=== PATIENT | female | born 1970 | race Caucasian/White ===

== ENCOUNTER 2024-03-01 10:36 | Outpatient (REF) | payer MEDICAID, OTHER, SELFPAY ==
[2024-03-01 13:15] LABS: MANUAL DIFF FLAG NO
[2024-03-01 13:17] LABS: Appearance Urine Clear; Color Urine Yellow; Glucose Urine UA Negative (Negative); Leukocyte Esterase Urine Negative (Negative); Nitrite Urine Negative (Negative); PH 5.5 (5.0-9.0); Specific Gravity - Urine 1.015 (1.005-1.025); Urine Blood Negative (Negative); Urine Ketones Negative (Negative); Urine Protein Negative (Neg-Trace)
[2024-03-01 13:19] LABS: Basophils Absolute Auto 0.1 X10*3/uL (0.0-0.2); Basophils Percent Auto 0.5 % (0-2); Eosinophils Absolute Auto 0.2 X10*3/uL (0.0-0.4); Eosinophils Percent Auto 1.9 % (0-4); Hematocrit 43.7 % (37.0-47.0); Imm Gran Abs Auto 0.03 X10*3/uL (0.00-0.03); Imm Gran Pct Auto 0.3 % (0.0-0.4); Lymphocytes Absolute Auto 2.8 X10*3/uL (1.2-4.9); Lymphocytes Percent Auto 26.6 % (20-40); Mean Corpuscular Hemoglobin 27.3 pg (27.0-33.0); Mean Corpuscular Volume 85.2 fL (80.0-98.0); Mean Platelet Volume 12.5 fL (9.4-12.3); Monocytes Absolute Auto 0.7 X10*3/uL (0.1-1.2); Monocytes Percent Auto 6.4 % (2-11); Neutrophils Absolute Auto 6.8 x10*3/uL (2.0-8.3); Neutrophils Percent Auto 64.3 % (45-73); Platelet Count 256 X10*3/uL (160-400); Red Blood Count 5.13 X10*6/uL (4.20-5.50); Red Cell Distribution Width 13.6 % (11.0-16.0); White Blood Count 10.6 X10*3/uL (4.8-10.8)
[2024-03-01 13:36] LABS: Bacteria Urine Trace (None Seen); Hyaline Casts Urine 0-2 /LPF (0-2); RBC Urine 0-2 /HPF (0-2); Squamous Epithelial Cell Urine 0-2 /HPF (0-2); WBC Urine 0-5 /HPF (0-5)
[2024-03-01 13:49] LABS: Alanine Aminotransferase 35 U/L (0-31); Albumin Level 4.4 g/dL (3.5-5.0); Alkaline Phosphatase 72 U/L (39-117); Anion Gap 16 (12-20); Aspartate Amino Transferase 24 U/L (5-31); Bilirubin Total 0.4 mg/dL (0.0-1.0); Blood Urea Nitrogen 14 mg/dL (9-16); Calcium 9.6 mg/dL (8.4-10.2); Carbon Dioxide 26 mmol/L (22-29); Chloride 103 mmol/L (96-108); Cholesterol 194 mg/dL (<200); Estimated Glomerular Filt Rate > 60; Glucose Random 87 mg/dL (60-115); HDL Cholesterol 41 mg/dL (>40); LDL Cholesterol Calculated 136 mg/dL (<100); Potassium 4.2 mmol/L (3.3-5.1); Sodium 141 mmol/L (135-145); Total Protein 7.9 g/dL (6.5-8.0); Triglycerides 85 mg/dL (<150)
[2024-03-01 13:51] LABS: HIV AB/AG Nonreactive (Nonreactive); HIV Num 1 0.04 S/CO (0.00-0.99); ~HepC Num1 0.12 S/CO (0.00-0.79); ~Hepatitis C Antibody Nonreactive (Nonreactive)
[2024-03-01 13:52] LABS: Syphilis Screen Nonreactive (Nonreactive)
[2024-03-01 14:00] LABS: Creatinine Urine 67.34 mg/dL; Microalbum/Creatinine Ratio Ur 14.8 ug/mg cr (<30)
[2024-03-01 14:06] LABS: Folate 12.8 ng/mL (> or = 4.0); Vitamin B12 678 pg/mL (200-900)
[2024-03-01 15:05] LABS: TSH reflex Free T4 1.25 uIU/mL (0.32-4.0)
[2024-03-03 23:18] LABS: TS Negative Control Passed; TS Panel A 0; TS Panel B 3; TS Positive Control Passed; TSpotTB Negative (Negative)
== END 2024-03-01 10:37 | disposition home or self-care (01) ==
LOC: HO.CHCLDS 10:36
PROVIDERS: Visit Provider Family Medicine
DX: E11.9 Type 2 diabetes mellitus without complications (principal); Z13.9 Encounter for screening, unspecified
CPT/HCPCS: 36415; 80053; 80061; 81001; 82043; 82570; 82607; 82746; 84443; 85025; 86481; 86780; 86803; 87389

== ENCOUNTER 2024-03-30 14:09 | Outpatient (REF) | payer MEDICAID, SELFPAY | END 2024-03-30 14:10 | disposition home or self-care (01) | LOC: HO.CHCLNP 14:09 | PROVIDERS: Visit Provider Family Medicine | DX: Z12.4 Encounter for screening for malignant neoplasm of cervix (principal) | CPT/HCPCS: 36415; 88175 ==

== ENCOUNTER 2024-04-12 14:33 | Outpatient (REF) | payer MEDICAID, SELFPAY ==
[2024-04-13 08:35] LABS: HBS Num1 0.11 mIU/mL (0-7.99); HBc Num1 0.17 S/CO (0.00-0.79); Hepatitis B Core Antibody Nonreactive (Nonreactive); ~Hepatitis B Surface Antibody NONREACTIVE (Nonreactive)
== END 2024-04-12 14:34 | disposition home or self-care (01) ==
LOC: HO.CHCLDS 14:33
PROVIDERS: Visit Provider Family Medicine
DX: E11.620 Type 2 diabetes mellitus with diabetic dermatitis (principal)
CPT/HCPCS: 36415; 86704; 86706

== ENCOUNTER 2024-12-06 15:03 | Outpatient (REF) | payer MEDICAID, SELFPAY ==
--- NOTE | ~2024-12-06 | US_ITS ---
CLINICAL HISTORY: ASYMMETRIC SKIN, MASS LEFT AXILLA US of the left axilla Comparison: None Findings: No sonographically detectable abnormality in the area of clinical interest. Impression: 1. Negative ultrasound examination. This document has been electronically signed by: Sophie Self MD on 12/07/2024 14:40:38
--- OUTSIDE RECORDS SUMMARY | 2024-12-06 16:59 | XMS_ITS | Encounter Summary ---
Author Organization [employer] Address [address] [facility] [address] [place] [address] Care Team Providers Care Heater Engineer Helper Name Role Phone Sendy Vincent MD Primary Care Provider [phone] Reason for Visit * Reason Onset Date Comments Medication Question 03/03/2024 Encounter Details Date Type Department Care Team ([facility] st Contact Info) Description 03/03/2024 Telephone [facility] MEDICINE [address] [place] [address] Sendy Vincent MD [address] [place], [place] [phone] Medication Question Social History Tobacco Use Types Packs/Day Years Used Date Smoking Tobacco: Never Passive Smoke Exposure: Never Smokeless Tobacco: Never Alcohol Use Standard Drinks/Week Comments Not Currently 0 (1 standard drink = 0.6 oz pur e alcohol) Housing Stability Answer Date Recorded What is your housing situation today? I have ludmilasalvador rose 02/17/[address] you li ve. Do you have problems with any of the following? None of the above 02/17/2024 Food Insecurity Answer Date Recorded Within the past 12 months, y ou worried that your food would run out before you got money to buy more: Never True 02/17/2024 Within the past 12 months,th e food you bought just didn't last and you didn't have enough money to get more: Never True 07/2024 Transportation Answer Date Recorded In the past 12 months, has l ack of transportation kept you from medical appts, meetings, work or from getting things needed for daily living? No 02/17/2024 Utilities Answer Date Recorded In the past 12 months, has t he electric, gas, oil or water company threatened to shut off services in your home? No 02/17/2024 Comments Unknown Sex and Gender Information Value Date Recorded Sex Assigned at Female 10/16/2023 10:33 AM EST Legal Sex Female 10:31 AM EST Gender Identity Female 10/16/2023 10:33 AM EST Sexual Orientation Straight 03/01/2024 9: 35 AM EDT documented as of this encounter Plan of Treatment Not on file documented as of this encounter Visit Diagnoses Not on filedocumented in this encounter Care Teams Heater Engineer Helper Relationship Specialty Start Date End Date Sendy Vincent MD [address] [place] [phone] PCP - General Family Medicine 03/01/24 documented as of this encounter
--- OUTSIDE RECORDS SUMMARY | 2024-12-06 16:59 | XMS_ITS | Encounter Summary ---
Author Organization [employer] Address [address] [facility] 7t [place] [address] Care Team Providers Care Call Circuit Worker Name Role Phone Sendy Vincent MD Primary Care Provider Reason for Visit * Reason Comments Med Refill Encounter Details Date Type Department Care Team ([facility] st Contact Info) Description 07/15/2024 Refill [facility] MED & PEDS [address] [place] [address] Sendy Vincent MD [address] [place] [address] Type 2 diabetes mellitus without complication, without long-term current use of insulin ([facility]) Social History Tobacco Use Types Packs/Day Years Used Date Smoking Tobacco: Never Passive Smoke Exposure: Never Smokeless Tobacco: Never Alcohol Use Standard Drinks/Week Comments Not Currently 0 (1 standard drink = 0.6 oz pur e alcohol) Depression Answer Date Recorded Patient Health Questionnaire-9 Score 0 04/12/2024 Patient Health Questionnaire-9 Score 0 04/12/2024 Last PHQ-9: Questionnaire Data Not on file 0 04/12/2024 Housing Stability Answer Date Recorded What is your housing situation today? I have ludmila rose 02/17/[address] you [...] off services in your home? No 02/17/2024 Depression Answer Date Recorded Patient Health Questionnaire-2 Score 0 04/12/2024 Comments Unknown Sex and Gender Information Value Date Recorded Sex Assigned at Female 10/16/2023 10:33 AM EST Legal Sex Female 10:31 AM EST Gender Identity Female 10/16/2023 10:33 AM EST Sexual Orientation Straight 03/01/2024 9: 35 AM EDT documented as of this encounter Plan of Treatment Not on file documented as of this encounter Visit Diagnoses Diagnosis Type 2 diabetes mellitus without complication, without long-term current use of insulin ([facility]) documented in this encounter Additional Health Concerns Assessment Noted Time PHQ-9 Depression Total Score: 0 04/12/20 1:49 PM EDT documented as of this encounter Care Teams Call Circuit Worker Relationship Specialty Start Date End Date Sendy Vincent MD [address] [place] [phone] PCP - General Family Medicine 03/01/24 documented as of this encounter
--- OUTSIDE RECORDS SUMMARY | 2024-12-06 16:59 | XMS_ITS | Clinical Summary ---
Author Organization [employer] Address [address] [place] [address] 7[address] [place] [address] Care Team Providers Care Geological Sample Tester Name Role Phone Sendy Vincent MD Primary Care Provider [phone] Allergies No known active allergies Medications Blood Pressure kit 1 Units Once per day. 1 kit 03/01/20 24 Active FREESTYLE LITE test stripIndication s:Type 2 diabetes mellitus without complication, without long-term current use of insulin ([facility]) Use to test blood sugar BID 100 each 12 03/01/20 24 025 Active Lancets miscIndications :Type 2 diabetes mellitus without complication, without long-term current use of insulin ([facility]) Use to test blood sugar BID 100 each 03/01/20 24 Active Alcohol Swabs 70 % padsIndications :Type 2 diabetes mellitus without complication, without long-term current use of insulin ([facility]) Use to test blood sugar BID 100 each 03/01/20 24 Active Blood Glucose Monitoring Suppl (FreeStyle [place] Lite) w/Device kitIndications: Type 2 diabetes mellitus without complication, without long-term current use of insulin ([facility]) Use to test blood sugar BID 1 kit 1 03/01/20 24 Active loratadine (Claritin) 10 MG tablet Take 10 mg by mouth Once per day. 03/08/20 24 Active EPINEPHrine (Epipen) 0.3 MG/0.3ML injection syringe INJECT INTRAMUSCULARLY FOR ALLERGIC REACTIONS, CALL 911 SEEK MEDICAL ATTENTION 03/08/20 24 Active ammonium lactate (Amlactin) 12 % cream Apply topically if needed for dry skin. 385 g 11 04/12/20 24 025 Active amLODIPine-Vals agustin-HCTZ 5-160-12.5 MG tabletIndicatio ns:Hypertension , unspecified type TAKE ONE TABLET DAILY 90 tablet 1 08/25/20 24 Active SITagliptin (Januvia) 50 MG tabletIndicatio ns:Type 2 diabetes mellitus without complication, without long-term current use of insulin (CMS/HCC) TAKE ONE TABLET DAILY 90 tablet 1 08/27/20 24 Active metFORMIN (Glucophage) 500 MG tabletIndicatio ns:Type 2 diabetes mellitus without complication, without long-term current use of insulin (CMS/HCC) TAKE 1 TABLET TWICE DAILY WITH BREAKFAST AND SUPPER 180 tablet 1 09/03/20 24 Active famotidine (Pepcid) 20 MG tabletIndicatio ns:Mild acid reflux Take 1 tablet (20 mg) by mouth if needed in the morning and at bedtime for heartburn or indigestion. 100 tablet 1 09/24/19 25 026 Active acetaminophen (Tylenol) 325 MG capsuleIndicati ons:Routine health maintenance Take 1-2 capsules (325-650 mg) by mouth every 6 (six) hours if needed (pain or fever). 120 capsule 1 09/24/19 25 Active ibuprofen 600 MG tabletIndicatio ns:Routine health maintenance Take 1 tablet (600 mg) by mouth every 8 (eight) hours if needed (pain or fever). 100 tablet 2 09/24/19 25 026 Active tolterodine LA (Detrol LA) 4 MG 24 hr capsule TAKE ONE CAPSULE BY MOUTH ONCE DAILY, DO NOT BREAK, CRUSH, DISSOLVE OR CHEW 90 capsule 1 10/26/19 25 Active acetaminophen (Tylenol) 325 MG tablet TAKE 1 OR 2 TABLETS BY MOUTH EVERY 6 HOURS NEEDED FOR PAIN OR FEVER 120 tablet 1 11/13/19 25 Active Active Problems Problem Noted Date Diagnosed Date Mild acid reflux 09/27/2024 Assessment & Plan (09/27/2024 6:34 PM EST): Reviewed lifestyle interventions to decrease symptoms including avoid triggering foods (such as coffee, chocolate, fatty foods), eating 2-3 hours before lying down, and weight loss. Plan to start famotidine 20 mg twice daily as needed. Reviewed med safety and side effects May consider increase to PPI if needed Primary hypertension 09/27/2024 Assessment & Plan (09/27/2024 6:37 PM EST): Elevated in office, although well-controlled per home blood pressure readings Continues with abmzhsntoz-duorqelap-hvgarkalaroauddspdy 5-1 60-12.5 mg daily Encouraged lifestyle interventions and follow-up precautions reviewed Type 2 diabetes mellitus wit hout complication, without long-term current use of insulin 07/20/2024 Chronic pain of left knee 04/12/2024 Assessment & Plan (04/12/2024 2:25 PM EDT): Possible Arthritis of the left knee, ordering XR of the knee for further evaluation. Referral to Physical Therapy for additional treatment. Class 1 obesity with serious comorbidity and body mass index (BMI) of 32.0 to 32.9 in adult 03/31/2024 Assessment & Plan (03/31/2024 9:45 AM EDT): Discussed calorie deficit, recommended reduction of 20-30% of maintenance calories; batchmaker referral offered. Recommended to decrease soda and sugary beverage consumption. Recommended at least 20 g per meal of protein to assist with satiety. Recommended at least 150 min/week of moderate intensity exercise. Encounters Date Type Department Care Team Description 11/12/2024 Refill [facility] MED & PEDS [address] [place] [address] Sendy Vincent MD 10/26/2024 Refill [facility] MED & PEDS [address] [place] [address] Sendy Vincent MD 09/24/2024 3:15 PM EST Office Visit [facility] MED & PEDS [address] [place] [address] Katrin Williamson, ELIZABETH Mass of left axilla (Primary Dx); Mild acid reflux; Routine health maintenance; Primary hypertension 09/24/2024 Travel 09/24/2024 Telephone [facility] MED & PEDS [address] [place] [address] Sendy Vincent MD Nurse Triage from Last 3 Months Immunizations Name Administration Dates Next Due Pneumococcal Conjugate PCV 20 03/30/2024 Tdap 04/12/2024 Zoster, Recombinant 06/28/2024,04/12/2024 Family History Medical History Relation Name Comments Heart disease Father Hypertension Father Diabetes Mother Hypertension Mother Relation Name Status Comments Father Mother Social History Tobacco Use Types Packs/Day Years Used Date Smoking Tobacco: Never Passive Smoke Exposure: Never Smokeless Tobacco: Never Tobacco Cessation:Counseling Given: Not Answered Alcohol Use Standard Drinks/Week Comments Not Currently [...] Orientation Straight 03/01/2024 9: 35 AM EDT Last Filed Vital Signs Vital Sign Reading Time Taken Comments Blood Pressure 162/92 09/24/2024 3:21 PM EST Pulse 86 09/24/2024 3:18 PM EST Temperature 36.4 ??C (97.6 ??F) 09/24/2024 3:18 PM ES T Respiratory Rate 18 09/24/2024 3:18 PM EST Oxygen Saturation 97% 09/24/2024 3:18 PM EST Inhaled Oxygen Concentration - - Weight 80.5 kg (177 lb 6 oz) 09/24/2024 3:18 PM EST Height 151.1 cm (4' 11.5 ) 09/24/2024 3:18 PM ES T Body Mass Index 35.23 09/24/2024 3:18 PM EST Plan of Treatment Health Maintenance Due Date Last Done Comments CT Colonography 1970 Colonoscopy 1970 Colorectal Cancer Screening 1970 FIT DNA/Cologuard 1970 FIT 1970 FOBT 1970 Sigmoidoscopy 1970 Alcohol/Substance Use Screening 1982 Hepatitis B Vaccines (1 of 3 - 19+ 3-dose series) 1989 Mammogram 2010 COVID-19 Vaccine ( season) 2024 Influenza Vaccine (#1) 2024 Diabetes: Hemoglobin A1C 08/31/2024 03/01/2024 SDOH Screening 02/16/2025 02/17/2024 Diabetes: Urine Protein Screening 03/01/2025 03/01/2024 Lipid Panel 03/01/2025 03/01/2024 Depression Screening 04/12/2025 04/12/2024, 04/12/20 Diabetes: Foot Exam 04/12/2025 04/12/2024, 04/12/2024, 04/12/2024, Additional history exists Tobacco Screening 09/24/2025 09/24/2024 Eye Exam 07/20/2026 07/20/2024, 07/09, 07/20/2024, Additional history exists Cervical Cancer Screening 03/30/2027 HPV/Cotest 03/30/2027 Pap Smear 03/30/2027 03/30/2024 DTaP/Tdap/Td Vaccines (2 - Td or Tdap) 04/12/2034 04/12/2024 RSV Patients and Patients Aged 60 years or older (1 - 1-dose 75+ series) 2045 HIV Screening Completed 03/01/2024 Hepatitis C Screening Completed 03/01/2024 Pneumococcal Vaccine: 50+ Years Completed 03/30/2024 Zoster Vaccines Completed 06/28/2024, 04/12/2024 HIB Vaccines Aged Out No longer eligi ble based on patient's age to complete this topic HPV Vaccines Aged Out No longer eligi ble based on patient's age to complete this topic Hepatitis A Vaccines Aged Out No long er eligible based on patient's age to complete this topic IPV Vaccines Aged Out No longer eligi ble based on patient's age to complete this topic Meningococcal Vaccine Aged Out No lawrence marychuy eligible based on patient's age to complete this topic RSV under 20 months Aged Out No longe r eligible based on patient's age to complete this topic Rotavirus Vaccines Aged Out No longer eligible based on patient's age to complete this topic Procedures Procedure Name Priority Date/Time Associated Diagnosis Comments THINPREP IMAGING SYSTEM PAP Routine 03/30/2024 11:55 AM EDT Cervical cancer screening ALBUMIN, RANDOM URINE W/CREATININE Routine 03/01/2024 10:50 AM EDT HEPATITIS C AB W/REFL TO HCV RNA, QN, PCR Routine 03/01/2024 10:44 AM EDT Encounter for health-related screening HIV 1/2 ANTIGEN/ANTIBODY, FOURTH GENERATION W/RFL Routine 03/01/2024 10:44 AM EDT Encounter for health-related screening LIPID PANEL, STANDARD Routine 03/01/2024 10:44 AM EDT Type 2 diabetes mellitus without complication, without long-term current use of insulin (CMS/HCC) POCT GLYCATED HEMOGLOBIN, TOTAL Routine 03/01/2024 10:03 AM EDT Type 2 diabetes mellitus without complication, without long-term current use of insulin (CMS/HCC) from Last 3 Months or Most Recently Relevant to Health Maintenance Results * Pap Smear (03/30/2024 11:55 AM EDT) SOURCE: SEE NOTE [facility] Comment:None given Report Status: TNP [facility] Clinical Information: SEE NOTE [facility] Comment:None given LMP: SEE NOTE [facility] Comment:NONE GIVEN Prev. PAP: SEE NOTE [facility] Comment:NONE GIVEN Prev. BX: SEE NOTE [facility] Comment:NONE GIVEN Statement Of Adequacy: SEE NOTE [facility] Comment:Satisfactory for mihai luation.Endocervical/transformation zone componentpresent. General Categorization: [facility] Interpretation/Result: SEE NOTE [facility] Comment:Cytology Results: Ne gative for intraepitheliallesion or malignancy. Cytology Comment SEE NOTE [facility] Comment:This Pap test has be en evaluated with computerassisted technology. Economic Historian: SEE NOTE [facility] Comment:GSG, CT(ASCP)CT scre ening location: [place] [address] Review Economic Historian: [facility] Pathologist [facility] PAP Infection [facility] See Note SEE NOTE [facility] Comment:EXPLANATORY NOTE:The Pap is a screening test for cervical cancer. It isnot a diagnostic test and is subject to false negativeand false positive results. It is most reliable when asatisfactory sample, regularly obtained, is submittedwith relevant clinical findings and history, and whenthe Pap result is evaluated along with historic andcurrent clinical information.THIS TEST WAS PERFORMED AT:[facility] [address] [id number] MARSH MD Pap Vial Vaginal structure / Unknown 03/30/2024 11:55 AM EDT 03/30/2024 2:10 PM EDT Narrative [facility] - 04/02/2024 12:46 PM EDT SEE SCANNED RESULTS IN EMR us Sendy Vincent MD LAB PATHOLOGY ORDERABLES Kandice negrete Result [facility] [address] [place] [address] [phone] * Albumin, Random Urine W/Creatinine (03/01/2024 10:50 AM EDT) Creatinine, Urine 67.34 mg/dL [facility] Microalbumin Urine 10.0 mg/L [facility] Microalbum Creatinine Ratio Ur 14.8 <30 ug/mg cr [facility] Comment:Albumin/Creatinine R atio Reference Ranges: Normal: < 30 ug/mg creatinine Microalbuminuria: 30 - 300 ug/mg creatinineClinical Albuminuria: > 300 ug/mg creatinine 03/01/2024 10:5 0 AM EDT 03/01/2024 1:09 PM EDT us Sendy Vincent MD LAB URINE ORDERABLES Final Re sult Performing Organization Address [facility] Co de Phone Number [facility] [address] [place] [phone] * Hepatitis C Antibody with Reflex to HCV, RNA, Quantitative, Real-Time PCR (03/01/2024 10:44 AM EDT) Hepatitis C Antibody Nonreactive Nonreactive [facility] Comment:Antibodies to HCV no t detected; does not exclude early acuteHCV infection. Blood Venous blood specimen / Unknown 03/01/2024 10:44 AM EDT 03/01/2024 1:12 PM EDT us Sendy Vincent MD LAB BLOOD ORDERABLES Final Re sult Performing Organization Address [facility] Co de Phone Number [facility] [address] [place] [phone] * HIV-1/2 Antigen and Antibodies, Fourth Generation, with Reflexes (03/01/2024 10:44 AM EDT) HIV AB/AG Nonreactive Nonreactive [facility] Comment:HIV-1 p24 Ag and/or HIV-1/HIV-2 Ab not detected.A test result that is nonreactive does not exclude thepossibility of exposure to or infection with HIV-1 and/orHIV-2. Nonreactive results in this assay for individualswith prior exposure to HIV-1 and/or HIV-2 may be due toantigen and antibody levels that are below the limit ofdetection of this assay.The [employer] HIV Ag/Ab Combo assay result andsupplemental assay results should be interpreted inconjunction with the patient's clinical presentation,history and other laboratory results. If the results areinconsistent with clinical evidence, additional testing issuggested to confirm the result. Blood Venous blood specimen / Unknown 03/01/2024 10:44 AM EDT 03/01/2024 1:12 PM EDT us Sendy Vincent MD LAB BLOOD ORDERABLES Final Re sult [facility] [address] [place] [phone] * (ABNORMAL) Lipid Panel, Standard (03/01/2024 10:44 AM EDT) Triglycerides 85 <150 mg/dL [facility] Comment:Desirable Triglyceri de: less than 150 mg/dLBorderline High Triglyceride 150-199 mg/dLHigh Triglyceride: 200-499 mg/dLVery High Triglyceride: greater than or equal to 5OO mg/dL Cholesterol 194 <200 mg/dL [facility] Comment:Desirable Cholestero l: less than 200 mg/dLBorderline High Cholesterol: 200-239 mg/dLHigh Cholesterol: greater than 239 mg/dL LDL Cholesterol Calculated 136(H) <100 mg/dL [facility] Comment:Desirable LDL: less than 100 mg/dLNear Optimal/Above Optimal LDL: 110- 129 mg/dLBorderline High LDL: 130-159 mg/dLHigh LDL: 160-189 mg/dLVery High LDL: greater than or equal to 190 mg/dL HDL Cholesterol 41 >40 mg/dL [facility] Comment:Desirable HDL: great er than 40 mg/dL Note: This HDL assay may give artificially low results in patients with liver disease. Blood Venous blood specimen / Unknown 03/01/2024 10:44 AM EDT 03/01/2024 1:12 PM EDT us Sendy Vincent MD LAB BLOOD ORDERABLES Final Re sult [facility] [address] [place] [address] [phone] * (ABNORMAL) POCT HGB A1C (03/01/2024 10:03 AM EDT) Hemoglobin A1C 6.1(A) 4.0 - 6.0 % QC Media Lot # [id number] Lot# Expiration Date Blood 03/01/2024 10:0 3 AM EDT us Sendy Vincent MD POINT OF CARE TEST ENTER/EDIT ORDERABLES Final Result from Last 3 Months or Most Recently Relevant to Health Maintenance Insurance [facility] [employer] Care Teams Geological Sample Tester Relationship Specialty Start Date End Date Sendy Vincent MD [address] [place] [address] PCP - General Family Medicine 03/01/24
== END 2024-12-06 15:04 | disposition home or self-care (01) ==
LOC: HO.US 15:03
PROVIDERS: Visit Provider Registered Nurse
DX: R22.32 Localized swelling, mass and lump, left upper limb (principal)
CPT/HCPCS: 76882

== ENCOUNTER → 2024-12-06 15:17 | Outpatient (BNV) | payer MEDICAID, SELFPAY | PROVIDERS: Visit Provider Radiology Diagnostic Radiology | DX: R22.32 Localized swelling, mass and lump, left upper limb (principal) | CPT/HCPCS: 76882 ==

== ENCOUNTER 2025-01-17 09:48 | Outpatient (REF) | payer SELFPAY ==
--- OUTSIDE RECORDS SUMMARY | 2025-01-17 10:08 | XMS_ITS | Encounter Summary ---
Author Organization [employer] Address [address] [facility] [address] [place] [address] Care Team Providers Care Brickmason Helper Name Role Phone Sendy Vincent MD Primary Care Provider [phone] Reason for Visit * Reason Onset Date Comments Med Refill 01/14/2025 Encounter Details Date Type Department Care Team (Late st Contact Info) Description 01/14/2025 Refill [facility] MED [facility] PEDS [address] [place] [address] Sendy Vincent MD [address] [place] [address] Type 2 diabetes mellitus without complication, without long-term current use of insulin ([facility]) Social History Tobacco Use Types Packs/Day Years [...] AM EDT documented as of this encounter Miscellaneous Notes * Telephone Encounter - Shirley Frausto LPN - 01/14/2025 11:44 AM EDT Last seen 09/24/24. documented in this encounter Plan of Treatment Not on file documented as of this encounter Visit Diagnoses Diagnosis Type 2 diabetes mellitus without complication, without long-term current use of insulin ([facility]) documented in this encounter Additional Health Concerns Assessment Noted Time PHQ-9 Depression Total Score: 0 04/12/20 1:49 PM EDT documented as of this encounter Care Teams Brickmason Helper Relationship Specialty Start Date End Date Sendy Vincent MD [address] [place] [phone] PCP - General Family Medicine 03/01/24 documented as of this encounter
--- OUTSIDE RECORDS SUMMARY | 2025-01-17 10:08 | XMS_ITS | Encounter Summary ---
Author Organization [employer] Address [address] [facility] [address] [place] [address] Care Team Providers Care 7Th Grade Teacher Name Role Phone Sendy Vincent MD Primary Care Provider [phone] Reason for Visit * Reason Onset Date Comments Medication Question 03/03/2024 Encounter Details Date Type Department Care Team ([facility] st Contact Info) Description 03/03/2024 Telephone [facility] MEDICINE [address] [place] [address] Sendy Vincent MD [address] [place], [place] [phone] Medication Question Social History Tobacco Use Types [...] on filedocumented in this encounter Care Teams 7Th Grade Teacher Relationship Specialty Start Date End Date Sendy Vincent MD [address] [place] [phone] PCP - General Family Medicine 03/01/24 documented as of this encounter
--- OUTSIDE RECORDS SUMMARY | 2025-01-17 10:08 | XMS_ITS | Encounter Summary ---
Author Organization [employer] Address [address] [facility] [address] [place] [address] Care Team Providers Care Director Trading Name Role Phone Sendy Vincent MD Primary Care Provider [phone] Encounter Details Date Type Department Care Team (Latest Contact Info) Description 01/17/2025 Travel Social History Tobacco Use Types Packs/Day Years [...] Recorded Patient Health Questionnaire-2 Score 0 04/12/2024 Internet Access Answer Date Recorded Internet Access Q1 Yes 01/17/2025 Internet Access Q2 Not on file 01/17/2025 Comments Unknown Sex and Gender Information Value Date Recorded Sex Assigned at Female 10/16/2023 10:33 AM EST Legal Sex Female 10:31 AM EST Gender Identity Female 10/16/2023 10:33 AM EST Sexual Orientation Straight 03/01/2024 9: 35 AM EDT documented as of this encounter Plan of Treatment Not on file documented as of this encounter Visit Diagnoses Not on filedocumented in this encounter Additional Health Concerns Assessment Noted Time PHQ-9 Depression Total Score: 0 04/12/20 1:49 PM EDT documented as of this encounter Care Teams Director Trading Relationship Specialty Start Date End Date Sendy Vincent MD [address] [place] [phone] PCP - General Family Medicine 03/01/24 documented as of this encounter
--- OUTSIDE RECORDS SUMMARY | 2025-01-17 10:08 | XMS_ITS | Encounter Summary ---
Author Organization [employer] [facility] Address [address] [place] [address] [address], [place] [address] Care Team Providers Care Director Global Development Name Role Phone Sendy Vincent MD Primary Care Provider [phone] Reason for Referral * Consultation (Routine) - Pending Review Specialty Diagnoses / Procedures Referred By Contac t Referred To Contact Urology Diagnoses Mixed stress and urge urinary incontinence Cystocele, unspecified Sendy Vincent MD [address] [place] [address] Phone: tel: fax: Referral ID Status Reason Start Date Expiration Date Visits Requested Visits Authorized [id number] Pending Review Specialty Services Required 01/17/2025 01/17/2026 1 1 * Imaging (Routine) - Authorized Specialty Diagnoses / Procedures Referred By Controel t Referred To Contact Radiology Diagnoses Pelvic pain Procedures US Pelvis Transvaginal Sendy Vincent MD [address] [place] [address] Phone: tel: fax: [address] Phone: tel: fax: Referral ID Status Reason Start Date Expiration Date V isits Requested Visits Authorized [id number] Authorized 01/17/2025 01/17/2026 1 1 * Imaging (Routine) - Authorized Specialty Diagnoses / Procedures Referred By Contac t Referred To Contact Radiology Diagnoses Pelvic pain Procedures Us Pelvis complete Sendy Vincent MD [address] [place] [address] Phone: tel: fax: [address] Phone: tel: fax: Referral ID Status Reason Start Date Expiration Date V isits Requested Visits Authorized [id number] Authorized 01/17/2025 01/17/2026 1 1 * Consultation (Routine) - Pending Review Specialty Diagnoses / Procedures Referred By Controel t Referred To Contact Obstetrics and Gynecology Diagnoses Pelvic pain Sendy Vincent MD [address] [place] [address] Phone: tel: fax: Referral ID Status Reason Start Date Expiration Date Visits Requested Visits Authorized [id number] Pending Review Specialty Services Required 01/17/2025 01/17/2026 1 1 Reason for Visit * Reason Comments Right side back pain Diabetes Hypertension Encounter Details Date Type Department Care Team (Late st Contact Info) Description 01/17/2025 9:15 AM EDT Office Visit [facility] [address] [place] [address] Sendy Vincent MD [address] [place] [address] Pelvic pain (Primary Dx); Dietary counseling; Exercise counseling; Mixed stress and urge urinary incontinence; Type 2 diabetes mellitus without complication, without long-term current use of insulin ([facility]); Primary hypertension; Cystocele, unspecified; Amenorrhea Social History Tobacco Use Types Packs/Day Years [...] AM EDT documented as of this encounter Last Filed Vital Signs Vital Sign Reading Time Taken Comments Blood Pressure 159/102 01/17/2025 9:06 AM EDT Pulse 84 01/17/2025 9:06 AM EDT Temperature 36.7 ??C (98.1 ??F) 01/17/2025 9:06 AM ED T Respiratory Rate 20 01/17/2025 9:06 AM EDT Oxygen Saturation 98% 01/17/2025 9:06 AM EDT Inhaled Oxygen Concentration - - Weight 80.8 kg (178 lb 3.2 oz) 01/17/2025 9:06 A M EDT Height 154 cm (5' 0.63 ) 01/17/2025 9:06 AM EDT Body Mass Index 34.08 01/17/2025 9:06 AM EDT documented in this encounter Plan of Treatment Scheduled Orders Name Type Priority Associated Diagnoses Orde r Schedule Us Pelvis complete Imaging Routine Pelvic pain Expected: 01/17/2025, Expires: 01/17/2026 US Pelvis Transvaginal Imaging Routine Pelvic pain Expected: 01/17/2025, Expires: 01/17/2026 Albumin, Random Urine W/Creatinine Lab Routine Type 2 diabetes mellitus without complication, without long-term current use of insulin (CMS/[facility]) Expected: 01/17/2025 (Approximate), Expires: 01/17/2026 CBC auto differential Lab Routine Type 2 diabetes mellitus without complication, without long-term current use of insulin (CMS/HCC) Expected: 01/17/2025 (Approximate), Expires: 01/17/2026 Comprehensive Metabolic Panel Lab Routine Type 2 diabetes mellitus without complication, without long-term current use of insulin (CMS/HCC) Expected: 01/17/2025 (Approximate), Expires: 01/17/2026 Estradiol Lab Routine Amenorrhea Expected: 01/17/2025, Expires: 01/17/2026 FSH Lab Routine Amenorrhea Expected: 01/17/2025, Expires: 01/17/2026 Anti-Mullerian Hormone (AMH), Female Lab Routine Amenorrhea Expected: 01/17/2025 (Approximate), Expires: 01/17/2026 Vitamin B12 (Cobalamin) and Folate Panel, Serum Lab Routine Type 2 diabetes mellitus without complication, without long-term current use of insulin (CMS/HCC) Expected: 01/17/2025 (Approximate), Expires: 01/17/2026 Lipid Panel, Standard Lab Routine Type 2 diabetes mellitus without complication, without long-term current use of insulin (CMS/HCC) Expected: 01/17/2025 (Approximate), Expires: 01/17/2026 Scheduled Referrals Name Type Priority Associated Diagnoses Orde r Schedule Referral to Obstetrics / Gynecology Outpatient Referral Routine Pelvic pain Expected: 01/17/2025 (Approximate), Expires: 01/17/2026 Referral to Urology Outpatient Referral Routine Mixed stress and urge urinary incontinence Cystocele, unspecified Expected: 01/17/2025 (Approximate), Expires: 01/17/2026 documented as of this encounter Procedures Procedure Name Priority Date/Time Associated Diagnosis Comments POCT GLYCATED HEMOGLOBIN, TOTAL Routine 01/17/2025 9:48 AM EDT Type 2 diabetes mellitus without complication, without long-term current use of insulin ([facility]) POCT GLUCOSE Routine 01/17/2025 9:47 AM EDT Type 2 diabetes mellitus without complication, without long-term current use of insulin ([facility]) documented in this encounter Results * POCT HGB A1C (01/17/2025 9:48 AM EDT) Hemoglobin A1C 5.7 4.0 - 6.0 % QC Media Lot # [id number] Lot# Expiration Date [id number] Blood 01/17/2025 9:48 AM EDT Sendy Vincent MD POINT OF CARE TEST ENTER/EDIT ORDERABLES Final Result * POCT Glucose (01/17/2025 9:47 AM EDT) Glucose Blood, POC 105 60 - 200 mg/dL QC Media Lot # [id number] Lot# Expiration Date Blood Capillary blood specimen / Unknown 01/17/2025 9:47 AM EDT Sendy Vincent MD POINT OF CARE TEST ENTER/EDIT ORDERABLES Final Result documented in this encounter Visit Diagnoses Diagnosis Pelvic pain- Primary Dietary counseling Dietary surveillance and counseling Exercise counseling Mixed stress and urge urinary incontinence Mixed incontinence urge and stress (male)(female) Type 2 diabetes mellitus without complication, without long-term current use of insulin ([facility]) Primary hypertension Unspecified essential hypertension Cystocele, unspecified Amenorrhea Absence of menstruation documented in this encounter Additional Health Concerns Assessment Noted Time PHQ-9 Depression Total Score: 0 04/12/20 24 1:49 PM EDT documented as of this encounter Care Teams Director Global Development Relationship Specialty Start Date End Date Sendy Vincent MD [address] [place] [address] [phone] PCP - General Family Medicine 03/01/24 documented as of this encounter
--- OUTSIDE RECORDS SUMMARY | 2025-01-17 10:08 | XMS_ITS | Encounter Summary ---
Author Organization [employer] Address [address] [facility] [address] [place] [address] Care Team Providers Care Reconnaissance Crewmember Name Role Phone Sendy Vincent MD Primary Care Provider [phone] Reason for Visit * Reason Comments Med Refill Encounter Details Date Type Department Care Team ([facility] st Contact Info) Description 07/15/2024 Refill [facility]S [address] [place] [address] Sendy Vincent MD [address] [place] [address] Type 2 diabetes mellitus without complication, without long-term current use of insulin ([facility]) Social History Tobacco Use Types [...] complication, without long-term current use of insulin ([facility]) documented in this encounter Additional Health Concerns Assessment Noted Time PHQ-9 Depression Total Score: 0 04/12/20 1:49 PM EDT documented as of this encounter Care Teams Reconnaissance Crewmember Relationship Specialty Start Date End Date Sendy Vincent MD [address] [place] [phone] PCP - General Family Medicine 03/01/24 documented as of this encounter
--- OUTSIDE RECORDS SUMMARY | 2025-01-17 10:08 | XMS_ITS | Clinical Summary ---
Author Organization [employer] Address [address] [facility] [address] [place] [address] Care Team Providers Care Pack Press Operator Name Role Phone Sendy Vincent MD Primary Care Provider Allergies No known active allergies Medications Blood Pressure kit 1 Units Once per day. 1 kit Active FREESTYLE LITE test stripIndicatio ns:Type 2 diabetes mellitus without complication, without long-term current use of insulin ([facility]) Use to test blood sugar BID 100 each 12 024 2024 Active Lancets miscIndication s:Type 2 diabetes mellitus without complication, without long-term current use of insulin ([facility]) Use to test blood sugar BID 100 each Active Alcohol Swabs 70 % padsIndication s:Type 2 diabetes mellitus without complication, without long-term current use of insulin ([facility]) Use to test blood sugar BID 100 each 11 Active Blood Glucose Monitoring Suppl (FreeStyle Magnolia Lite) w/Device kitIndications :Type 2 diabetes mellitus without complication, without long-term current use of insulin ([facility]) Use to test blood sugar BID 1 kit 1 Active loratadine (Claritin) 10 MG tablet Take 10 mg by mouth Once per day. Active EPINEPHrine (Epipen) 0.3 MG/0.3ML injection syringe INJECT INTRAMUSCULARLY FOR ALLERGIC REACTIONS, CALL 911 SEEK MEDICAL ATTENTION Active ammonium lactate (Amlactin) 12 % cream Apply topically if needed for dry skin. 385 g 11 024 2024 Active metFORMIN (Glucophage) 500 MG tabletIndicati ons:Type 2 diabetes mellitus without complication, without long-term current use of insulin ([facility]) TAKE 1 TABLET TWICE DAILY WITH BREAKFAST AND SUPPER 180 tablet 1 024 Active famotidine (Pepcid) 20 MG tabletIndicati ons:Mild acid reflux Take 1 tablet (20 mg) by mouth if needed in the morning and at bedtime for heartburn or indigestion. 100 tablet 1 025 2025 Active acetaminophen (Tylenol) 325 MG capsuleIndicat ions:Routine health maintenance Take 1-2 capsules (325-650 mg) by mouth every 6 (six) hours if needed (pain or fever). 120 capsule 1 025 Active ibuprofen 600 MG tabletIndicati ons:Routine health maintenance Take 1 tablet (600 mg) by mouth every 8 (eight) hours if needed (pain or fever). 100 tablet 2 025 2025 Active acetaminophen (Tylenol) 325 MG tablet TAKE 1 OR 2 TABLETS BY MOUTH EVERY 6 HOURS NEEDED FOR PAIN OR FEVER 120 tablet 1 025 Active SITagliptin (Januvia) 50 MG tabletIndicati ons:Type 2 diabetes mellitus without complication, without long-term current use of insulin ([facility]) TAKE ONE TABLET BY MOUTH EVERY DAY 90 tablet 1 025 Active amLODIPine-Veronika sartan-HCTZ 10-160-12.5 MG tablet Take 1 tablet by mouth Once per day. 90 tablet 1 025 Active tolterodine LA (Detrol LA) 4 MG 24 hr capsule Take 1 capsule (4 mg) by mouth Once per day. Do not crush, chew, or split. 90 capsule 1 025 Active amLODIPine-Veronika sartan-HCTZ 5-160-12.5 MG tabletIndicati ons:Hypertensi on, unspecified type TAKE ONE TABLET DAILY 90 tablet 1 024 2024 Discontinued(I neffective) tolterodine LA (Detrol LA) 4 MG 24 hr capsule TAKE ONE CAPSULE BY MOUTH ONCE DAILY, DO NOT BREAK, CRUSH, DISSOLVE OR CHEW 90 capsule 1 025 2024 Discontinued(R eorder (will not trigger notification to Pharmacy)) Januvia 50 MG tabletIndicati ons:Type 2 diabetes mellitus without complication, without long-term current use of insulin ([facility]) TAKE ONE TABLET DAILY 30 tablet 025 2024 Discontinued(R eorder (will not trigger notification to Pharmacy)) Active Problems Problem Noted Date Diagnosed Date Mixed stress and urge urinary incontinence 01/17 Pelvic pain 01/17/2025 Cystocele, unspecified 01/17/2025 Mild acid reflux 09/27/2024 Assessment & Plan [...] per home blood pressure readings Continues with wammzqfdsu-lfnbhlxti-zbkunpcqpoxittnajab 5-1 60-12.5 mg daily Encouraged lifestyle interventions [...] recommended reduction of 20-30% of maintenance calories; manager product design referral offered. Recommended to decrease soda and sugary beverage consumption. Recommended at least 20 g per meal of protein to assist with satiety. Recommended at least 150 min/week of moderate intensity exercise. Encounters Date Type Department Care Team Description 01/17/2025 9:15 AM EDT Office Visit [facility] [address] [place] [address] Sendy Vincent MD Pelvic pain (Primary Dx); Dietary counseling; Exercise counseling; Mixed stress and urge urinary incontinence; Type 2 diabetes mellitus without complication, without long-term current use of insulin ([facility]); Primary hypertension; Cystocele, unspecified; Amenorrhea 01/17/2025 Travel 01/14/2025 Refill [facility] [address] [place] [address] Sendy Vincent MD Type 2 diabetes mellitus without complication, without long-term current use of insulin ([facility]) 01/10/2025 Patient Outreach [facility] [address] [place], [place] [phone] Sendy Vincent MD Pre-visit Planning ([facility] screening unable to be completed. ) 12/08/2024 Refill [facility] [address] [place] [address] Sendy Vincent MD Type 2 diabetes mellitus without complication, without long-term current use of insulin ([facility]) 12/06/2024 Orders Only [facility] [address] [place] [address] Katrin Williamson FNP 11/12/2024 Refill [facility] [address] [place] [address] Sendy Vincent MD 10/26/2024 Refill [facility] [address] [place] [address] Sendy Vincent MD from Last 3 Months Immunizations Name Administration [...] Mass Index 34.08 01/17/2025 9:06 AM EDT Plan of Treatment Health Maintenance Due Date Last Done Comments CT Colonography 1970 Colonoscopy 1970 Colorectal Cancer Screening 1970 FIT DNA/Cologuard 1970 FIT 1970 FOBT 1970 Sigmoidoscopy 1970 Hepatitis B Vaccines (1 of 3 - 19+ 3-dose series) 1989 Mammogram 2010 Diabetes: Urine Protein Screening 03/01/2025 03/01/2024 Lipid Panel 03/01/2025 03/01/2024 Influenza Vaccine (#1) 2025 Postp oned from 05/09/2024 (Patient Refused) Depression Screening 04/12/2025 04/12/2024, 04/12/20 Diabetes: Foot Exam 04/12/2025 04/12/2024, 04/12/2024, 04/12/2024, Additional history exists Diabetes: Hemoglobin A1C 07/20/2025 01/17/2025, 02/07 Alcohol/Substance Use Screening 01/17/2026 01/17/2025 COVID-19 Vaccine ( season) 2026 Postponed from 05/09/2024 (Patient Refused) SDOH Screening 01/17/2026 01/17/2025 Tobacco Screening 01/17/2026 01/17/2025 Eye Exam 07/20/2026 07/20/2024, 07/09, 07/20/2024, Additional [...] long-term current use of insulin (CMS/HCC) POCT GLUCOSE Routine 01/17/2025 9:47 AM EDT Type 2 diabetes mellitus without complication, without long-term current use of insulin (CMS/HCC) US EXTREMITY NONVASCULAR BLACKWOOD Routine 12/07/2024 2:40 PM EDT THINPREP IMAGING SYSTEM PAP Routine 03/30/2024 11:55 [...] Recently Relevant to Health Maintenance Results * POCT HGB A1C (01/17/2025 9:48 AM EDT) Hemoglobin A1C 5.7 4.0 - 6.0 % QC Media Lot # [id number] Lot# Expiration Date 122,027 Blood 01/17/2025 9:48 AM EDT us Sendy Vincent MD POINT OF CARE TEST ENTER/EDIT ORDERABLES Final Result * POCT Glucose (01/17/2025 9:47 AM EDT) Glucose Blood, POC 105 60 - 200 mg/dL QC Media Lot # [id number] Lot# Expiration Date ,025 Blood Capillary blood specimen / Unknown 01/17/2025 9:47 AM EDT us Sendy Vincent MD POINT OF CARE TEST ENTER/EDIT ORDERABLES Final Result * US EXTREMITY NONVASCULAR BLACKWOOD (12/07/2024 2:40 PM EDT) Anatomical Region Laterality Modality Abdomen Ultrasound 12/07/2024 2:40 PM EDT Narrative 12/07/2024 2:41 PM EDT ? [facility] ?[address] ?[place] [address] ? Ultrasound Report ? Signed ? Patient: Tim Savage,Deborah ?MR#: M ?? [id number] ? : 1970 ?Acct:[id number] ? Age/Sex: 54 / F ?ADM Date: //25 ? Loc: HO.US ? Attending Dr: Katrin Williamson STRATEGIC DEBRIEFING OFFICER ? Ordering Physician: Katrin Williamson STRATEGIC DEBRIEFING OFFICER ?? Date of Service: 12/06/24 ?? Procedure(s): US extremity nonvascular blackwood ?? Accession Number(s): [id number] ? cc: Katrin Williamson STRATEGIC DEBRIEFING OFFICER ? CLINICAL HISTORY: ASYMMETRIC SKIN, MASS LEFT AXILLA ? US of the left axilla ? Comparison: None ? Findings: ?? No sonographically detectable abnormality in the area of clinical interest. ? Impression: ?? 1. Negative ultrasound examination. ? This document has been electronically signed by: Sophie Self MD on ?? 12/07/2024 14:40:38 ? Dictated By: ?Sophie Self MD ? Signed By: ?<Electronically signed by Sophie Self MD in OV> ? 12/07/24 1441 ? DD/ 1440 ? TD/TT: 12/07/24 1440 ? Parent Trainer: ? Procedure Note Alejasarai, Image - 12/07/[address] [address] Ultrasound Report Signed Patient: Elizabet Schulz#: M [id number] : 1970Acct:[id number] Age/Sex: 54 / FADM Date: 12/06/24 Loc: HO.US Attending Dr: Katrin JOHNSON Ordering Physician: Katrin Williamson Date of Service: 12/06/24 Procedure(s): US extremity nonvascular blackwood Accession Number(s): [id number] cc: Katrin Williamson CLINICAL HISTORY: ASYMMETRIC SKIN, MASS LEFT AXILLA US of the left axilla Comparison: None Findings: No sonographically detectable abnormality in the area of clinicalinterest. Impression: 1. Negative ultrasound examination. This document has been electronically signed by: Sophie Self MD on 12/07/2024 14:40:38 Dictated By: Sophie Self MD Signed By: <Electronically signed by Sophie Self MD in OV> 12/07/24 1441 DD/ 1440 TD/TT: 12/07/24 1440 Parent Trainer: us Katrin JOHNSON IMG US PROCEDURES Final Result * Pap Smear (03/30/2024 11:55 AM EDT) SOURCE: SEE NOTE [facility] Comment:None given Report Status: TNP [facility] Clinical Information: SEE NOTE [facility] Comment:None given LMP: SEE NOTE [facility] Comment:NONE GIVEN Prev. PAP: SEE NOTE [facility] Comment:NONE GIVEN Prev. BX: SEE NOTE [facility] Comment:NONE GIVEN Statement Of Adequacy: SEE NOTE [facility] Comment:Satisfactory for mihai luation.Endocervical/transformation zone componentpresent. General Categorization: [facility] Interpretation/Result: SEE NOTE [facility] Comment:Cytology Results: Ne gative for intraepitheliallesion or malignancy. Cytology Comment SEE NOTE [facility] Comment:This Pap test has be en evaluated with computerassisted technology. Poultry Processor: SEE NOTE [facility] Comment:GSG, CT(ASCP)CT scre ening location: [place] [address] Review Poultry Processor: [facility] Pathologist [facility] PAP Infection [facility] See Note SEE NOTE [facility] Comment:EXPLANATORY NOTE:The Pap is a screening test for cervical cancer. It isnot a diagnostic test and is subject to false negativeand false positive results. It is most reliable when asatisfactory sample, regularly obtained, is submittedwith relevant clinical findings and history, and whenthe Pap result is evaluated along with historic andcurrent clinical information.THIS TEST WAS PERFORMED AT:[facility] [address] [id number] MARSH MD Pap Vial Vaginal structure / Unknown 03/30/2024 11:55 AM EDT 03/30/2024 2:10 PM EDT Narrative [facility] - 04/02/2024 12:46 PM EDT SEE SCANNED RESULTS IN EMR us Sendy Vincent MD LAB PATHOLOGY ORDERABLES Kandice l Result [facility] [address] [place] [address] [phone] * Albumin, Random Urine W/Creatinine (03/01/2024 10:50 AM EDT) Creatinine, Urine 67.34 mg/dL [facility] Microalbumin Urine 10.0 mg/L [facility] Microalbum Creatinine Ratio Ur 14.8 <30 ug/mg cr [facility] Comment:Albumin/Creatinine R atio Reference Ranges: Normal: < 30 ug/mg creatinine Microalbuminuria: 30 - 300 ug/mg creatinineClinical Albuminuria: > 300 ug/mg creatinine 03/01/2024 10:5 0 AM EDT 03/01/2024 1:09 PM EDT us Sendy Vincent MD LAB URINE ORDERABLES Final Re sult Performing Organization Address [facility]/ZIP Co de Phone Number [facility] [address] [place] [address] [phone] * Hepatitis C Antibody with Reflex to HCV, RNA, Quantitative, Real-Time PCR (03/01/2024 10:44 AM EDT) Hepatitis C Antibody Nonreactive Nonreactive [facility] Comment:Antibodies to HCV no t detected; does not exclude early acuteHCV infection. Blood Venous blood specimen / Unknown 03/01/2024 10:44 AM EDT 03/01/2024 1:12 PM EDT us Sendy Vincent MD LAB BLOOD ORDERABLES Final Re sult Performing Organization Address [facility] Co de Phone Number [facility] [address] [place] [phone] * HIV-1/2 Antigen and Antibodies, Fourth Generation, with Reflexes (03/01/2024 10:44 AM EDT) HIV AB/AG Nonreactive Nonreactive [facility] Comment:HIV-1 p24 Ag and/or HIV-1/HIV-2 Ab not detected.A test result that is nonreactive does not exclude thepossibility of exposure to or infection with HIV-1 and/orHIV-2. Nonreactive results in this assay for individualswith prior exposure to HIV-1 and/or HIV-2 may be due toantigen and antibody levels that are below the limit ofdetection of this assay.The [employer] HIV Ag/Ab Combo assay result andsupplemental assay results should be interpreted inconjunction with the patient's clinical presentation,history and other laboratory results. If the results areinconsistent with clinical evidence, additional testing issuggested to confirm the result. Blood Venous blood specimen / Unknown 03/01/2024 10:44 AM EDT 03/01/2024 1:12 PM EDT us Sendy Vincent MD LAB BLOOD ORDERABLES Final Re sult Performing Organization Address [facility] Co de Phone Number [facility] [address] [place] [phone] * (ABNORMAL) Lipid Panel, Standard (03/01/2024 10:44 AM EDT) Triglycerides 85 <150 mg/dL [facility] Comment:Desirable Triglyceri de: less than 150 mg/dLBorderline High Triglyceride 150-199 mg/dLHigh Triglyceride: 200-499 mg/dLVery High Triglyceride: greater than or equal to 5OO mg/dL Cholesterol 194 <200 mg/dL [facility] Comment:Desirable Cholestero l: less than 200 mg/dLBorderline High Cholesterol: 200-239 mg/dLHigh Cholesterol: greater than 239 mg/dL LDL Cholesterol Calculated 136(H) <100 mg/dL [facility] Comment:Desirable LDL: less than 100 mg/dLNear Optimal/Above Optimal LDL: 110- 129 mg/dLBorderline High LDL: 130-159 mg/dLHigh LDL: 160-189 mg/dLVery High LDL: greater than or equal to 190 mg/dL HDL Cholesterol 41 >40 mg/dL [facility] Comment:Desirable HDL: great er than 40 mg/dL Note: This HDL assay may give artificially low results in patients with liver disease. Blood Venous blood specimen / Unknown 03/01/2024 10:44 AM EDT 03/01/2024 1:12 PM EDT us Sendy Vincent MD LAB BLOOD ORDERABLES Final Re sult [facility] [address] [place] [address] [phone] from Last 3 Months or Most Recently Relevant to Health Maintenance Insurance LIMITED HSN FULL Care Teams Pack Press Operator Relationship Specialty Start Date End Date Sendy Vincent MD [address] [place] [phone] PCP - General Family Medicine 03/01/24
== END 2025-01-17 09:49 | disposition home or self-care (01) ==
LOC: HO.CHCLDS 09:48
PROVIDERS: Visit Provider Family Medicine
DX: Z13.89 Encounter for screening for other disorder (principal)

== ENCOUNTER 2025-01-18 12:46 | Outpatient (REF) | payer SELFPAY ==
--- OUTSIDE RECORDS SUMMARY | 2025-01-18 13:47 | XMS_ITS | Clinical Summary ---
Author Organization [employer] Address [address] [facility] [facility] [address] [place] [address] Care Team Providers Care Lang Path Therapist Name Role Phone Sendy Vincent MD Primary Care Provider [phone] Allergies No known active allergies Medications Blood Pressure kit 1 Units Once per day. 1 kit Active FREESTYLE LITE test stripIndicatio ns:Type 2 diabetes mellitus without complication, without long-term current use of insulin ([facility]) Use to test blood sugar BID 100 each 12 024 2024 Active Lancets miscIndication s:Type 2 diabetes mellitus without complication, without long-term current use of insulin ([facility]) Use to test blood sugar BID 100 each Active Alcohol Swabs 70 % padsIndication s:Type 2 diabetes mellitus without complication, without long-term current use of insulin ([facility]) Use to test blood sugar BID 100 each 11 Active Blood Glucose Monitoring Suppl (FreeStyle [place] Lite) w/Device kitIndications :Type 2 diabetes mellitus without complication, without long-term current use of insulin ([facility]) Use to test blood sugar BID [...] complication, without long-term current use of insulin ([facility]) TAKE 1 TABLET TWICE DAILY WITH [...] complication, without long-term current use of insulin ([facility]) TAKE ONE TABLET BY MOUTH EVERY [...] complication, without long-term current use of insulin ([facility]) TAKE ONE TABLET DAILY 30 tablet 025 2024 Discontinued(R eorder (will not trigger notification to Pharmacy)) Active Problems Problem Noted Date Diagnosed Date Mixed stress and urge urinary incontinence 01/17 Pelvic pain 01/17/2025 Assessment & Plan (01/17/2025 10:13 AM EDT): Patient reports pelvic pain, particularly in the right groin area, which worsens around the time of expected menstruation. Last menstrual period was in October, with irregular bleeding patterns suggesting perimenopause. Previous examination revealed urethral prolapse. Plan: - Order pelvic ultrasound to evaluate ovaries and pelvic structures - Renew referral to gynecology for evaluation of pelvic pain and prolapse - Continue tolterodine 4 mg for urinary incontinence as needed - Order anti-M??llerian hormone test to assess menopausal status - Educate patient on the need to follow up with specialists in [place] due to insurance limitations Cystocele, unspecified 01/17/2025 Mild acid reflux 09/27/2024 [...] needed Primary hypertension 09/27/2024 Assessment & Plan (01/17/2025 10:10 AM EDT): Patient reports having high blood pressure daily, with readings consistently above the target of 130/80 mmHg. This target is set due to the patient's diabetes and young age. Current medication regimen includes a combination pill of amlodipine, valsartan, and hydrochlorothiazide, which has not been adequately controlling blood pressure. Plan: - Increase amlodipine dose in the combination pill from 5/160/12.5 to 10/160/12.5 mg daily - Follow up in 6 weeks to reassess blood pressure control - Goal: blood pressure <130/80 mmHg at least 75% of the time Assessment & Plan (09/27/2024 6:37 PM EST): Elevated in office, although well-controlled per home blood pressure readings Continues with quljknbbjc-wuwgxcqvs-dhvhowzzmgrcoykmhwq 5-1 60-12.5 mg daily Encouraged lifestyle interventions and follow-up precautions reviewed Type 2 diabetes mellitus wit hout complication, without long-term current use of insulin 07/20/2024 Assessment & Plan (01/17/2025 10:11 AM EDT): Patient has type 2 diabetes with insulin resistance. Current HbA1c is 5.7%, indicating good glycemic control on the current medication regimen. Patient is on metformin and Januvia, which appear to be effective in managing blood glucose levels. Plan: - Continue metformin 500 mg PO twice daily - Continue Januvia 50 mg PO daily - Monitor for medication side effects, particularly gastrointestinal symptom Chronic pain of left knee 04/12/2024 Assessment [...] recommended reduction of 20-30% of maintenance calories; automatic lehr operator referral offered. Recommended to decrease soda and sugary beverage consumption. Recommended at least 20 g per meal of protein to assist with satiety. Recommended at least 150 min/week of moderate intensity exercise. Encounters Date Type Department Care Team Description 01/17/2025 9:15 AM EDT Office Visit [facility] [address] [place] [address] Sendy Vincent MD Pelvic pain (Primary Dx); Dietary counseling; Exercise counseling; Mixed stress and urge urinary incontinence; Type 2 diabetes mellitus without complication, without long-term current use of insulin ([facility]); Primary hypertension; Cystocele, unspecified; Amenorrhea 01/17/2025 Travel 01/14/2025 Refill [facility] [address] [place] [address] Sendy Vincent MD Type 2 diabetes mellitus without complication, without long-term current use of insulin ([facility]) 01/10/2025 Patient Outreach [facility] [address] [place] [address] Sendy Vincent MD Pre-visit Planning ([facility] screening unable to be completed. ) 12/08/2024 Refill [facility] [address] [place] [address] Sendy Vincent MD Type 2 diabetes mellitus without complication, without long-term current use of insulin ([facility]) 12/06/2024 Orders Only [facility] [address] [place] [address] Katrin Williamson SPECIALTIES OPERATOR 11/12/2024 Refill [facility] [address], [place] [phone] Sendy Vincent MD 10/26/2024 Refill [facility] [address], [place] [phone] Sendy Vincent MD from Last 3 Months [...] - 200 mg/dL QC Media Lot # [id number] Lot# Expiration Date ,025 Blood Capillary blood specimen / Unknown 01/17/2025 9:47 AM EDT Sendy Vincent MD POINT OF CARE TEST ENTER/EDIT ORDERABLES Final Result * US EXTREMITY NONVASCULAR BLACKWOOD (12/07/2024 2:40 PM EDT) Anatomical Region Laterality Modality Abdomen Ultrasound 12/07/2024 2:40 PM EDT Narrative 12/07/2024 2:41 PM EDT ? [facility] ?[address] ?[place] [address] ? Ultrasound Report ? Signed ? Patient: Deborah Schulz ?MR#: [id number] ?? [id number] ? : 1970 ?Acct:[id number] ? Age/Sex: 54 / F ?ADM Date: 12/06/24 ? Loc: HO.US ? Attending Dr: Katrin Williamson SPECIALTIES OPERATOR ? Ordering Physician: Katrin Williamson SPECIALTIES OPERATOR ?? Date of Service: 12/06/24 ?? Procedure(s): US extremity nonvascular blackwood ?? Accession Number(s): [id number] ? cc: Katrin Williamson SPECIALTIES OPERATOR ? CLINICAL HISTORY: ASYMMETRIC SKIN, MASS LEFT [...] DD/ 1440 ? TD/TT: 12/07/24 1440 ? Gun Number: ? Procedure Note Padmini, Image - 12/07/[address] [address] Ultrasound Report Signed Patient: Elizabet Schulz#: M [id number] : 1970Acct:[id number] Age/Sex: 54 / FADM Date: 12/06/24 Loc: HO.US Attending Dr: Katrin JOHNSON Ordering Physician: Katrin Williamson Date of Service: 12/06/24 Procedure(s): US extremity nonvascular blackwood Accession Number(s): [id number] cc: Katrin Williamson CLINICAL HISTORY: ASYMMETRIC SKIN, [...] 12/07/24 1441 DD/ 1440 TD/TT: 12/07/24 1440 Gun Number: us Katrin JOHNSON IMG US PROCEDURES Final Result * Pap Smear (03/30/2024 11:55 AM EDT) SOURCE: SEE NOTE [facility] Comment:None given Report Status: TNP [facility] Clinical Information: SEE NOTE [facility] Comment:None given LMP: SEE NOTE [facility] Comment:NONE GIVEN Prev. PAP: SEE NOTE [facility] Comment:NONE GIVEN Prev. BX: SEE NOTE [facility] Comment:NONE GIVEN Statement Of Adequacy: SEE NOTE [facility] Comment:Satisfactory for mihai luation.Endocervical/transformation zone componentpresent. General Categorization: TNP [facility] Interpretation/Result: SEE NOTE [facility] Comment:Cytology Results: Ne gative for intraepitheliallesion or malignancy. Cytology Comment SEE NOTE [facility] Comment:This Pap test has be en evaluated with computerassisted technology. Grid Caster: SEE NOTE [facility] Comment:GSG, CT(ASCP)CT scre ening location: [address] [address] Review Grid Caster: [facility] Pathologist [facility] PAP Infection [facility] See Note SEE NOTE [facility] Comment:EXPLANATORY NOTE:The Pap is a screening test for cervical cancer. It isnot a diagnostic test and is subject to false negativeand false positive results. It is most reliable when asatisfactory sample, regularly obtained, is submittedwith relevant clinical findings and history, and whenthe Pap result is evaluated along with historic andcurrent clinical information.THIS TEST WAS PERFORMED AT:[facility] [address] [id number] MARSH MD Pap Vial Vaginal structure / Unknown 03/30/2024 11:55 AM EDT 03/30/2024 2:10 PM EDT Narrative [facility] - 04/02/2024 12:46 PM EDT SEE SCANNED RESULTS IN EMR us Sendy Vincent MD LAB PATHOLOGY ORDERABLES Kandice l Result [facility] [address] [place] [phone] [phone] * Albumin, Random Urine W/Creatinine (03/01/2024 10:50 AM EDT) Creatinine, Urine 67.34 mg/dL [facility] Microalbumin Urine 10.0 mg/L [facility] Microalbum Creatinine Ratio Ur 14.8 <30 ug/mg cr [facility] Comment:Albumin/Creatinine R atio Reference Ranges: Normal: < 30 ug/mg creatinine Microalbuminuria: 30 - 300 ug/mg creatinineClinical Albuminuria: > 300 ug/mg creatinine 03/01/2024 10:5 0 AM EDT 03/01/2024 1:09 PM EDT Sendy Vincent MD LAB URINE ORDERABLES Final Re sult Performing Organization Address [facility] Co de Phone Number [facility] [address] [place] [phone] * Hepatitis C Antibody with Reflex to HCV, RNA, Quantitative, Real-Time PCR (03/01/2024 10:44 AM EDT) Hepatitis C Antibody Nonreactive Nonreactive [facility] Comment:Antibodies to HCV no t detected; does not exclude early acuteHCV infection. Blood Venous blood specimen / Unknown 03/01/2024 10:44 AM EDT 03/01/2024 1:12 PM EDT Sendy Vincent MD LAB BLOOD ORDERABLES Final Re sult Performing Organization Address [facility] de Phone Number [facility] [address] [place] [phone] * HIV-1/2 Antigen and Antibodies, Fourth Generation, with Reflexes (03/01/2024 10:44 AM EDT) Pathologist [facility] HIV AB/AG Nonreactive Nonreactive [facility] Comment:HIV-1 p24 Ag and/or HIV-1/HIV-2 Ab not detected.A test result that is nonreactive does not exclude thepossibility of exposure to or infection with HIV-1 and/orHIV-2. Nonreactive results in this assay for individualswith prior exposure to HIV-1 and/or HIV-2 may be due toantigen and antibody levels that are below the limit ofdetection of this assay.The [facility] [facility] HIV Ag/Ab Combo assay result andsupplemental assay results should be interpreted inconjunction with the patient's clinical presentation,history and other laboratory results. If the results areinconsistent with clinical evidence, additional testing issuggested to confirm the result. Blood Venous blood specimen / Unknown 03/01/2024 10:44 AM EDT 03/01/2024 1:12 PM EDT us Sendy Vincent MD LAB BLOOD ORDERABLES Final Re sult Performing Organization Address [facility] Co de Phone Number [facility] [address] [place] [address] [phone] * (ABNORMAL) Lipid Panel, Standard (03/01/2024 10:44 AM EDT) Triglycerides 85 <150 mg/dL [facility] Comment:Desirable Triglyceri de: less than 150 mg/dLBorderline High Triglyceride 150-199 mg/dLHigh Triglyceride: 200-499 mg/dLVery High Triglyceride: greater than or equal to 5OO mg/dL Cholesterol 194 <200 mg/dL [facility] Comment:Desirable Cholestero l: less than 200 mg/dLBorderline High Cholesterol: 200-239 mg/dLHigh Cholesterol: greater than 239 mg/dL LDL Cholesterol Calculated 136(H) <100 mg/dL [facility] Comment:Desirable LDL: less than 100 mg/dLNear Optimal/Above Optimal LDL: 110- 129 mg/dLBorderline High LDL: 130-159 mg/dLHigh LDL: 160-189 mg/dLVery High LDL: greater than or equal to 190 mg/dL HDL Cholesterol 41 >40 mg/dL [facility] Comment:Desirable HDL: great er than 40 mg/dL Note: This HDL assay may give artificially low results in patients with liver disease. Blood Venous blood specimen / Unknown 03/01/2024 10:44 AM EDT 03/01/2024 1:12 PM EDT us Sendy Vincent MD LAB BLOOD ORDERABLES Final Re sult Performing Organization Address [facility]/ZIP Co de Phone Number [facility] [address] [place] [phone] from Last 3 Months or Most Recently Relevant to Health Maintenance Insurance [address] [place] [address] [facility] [employer] FULL Care Teams Lang Path Therapist Relationship Specialty Start Date End Date Sendy Vincent MD [address] [place] [address] PCP - General Family Medicine 03/01/24
--- OUTSIDE RECORDS SUMMARY | 2025-01-18 13:47 | XMS_ITS | Encounter Summary ---
Author Organization [employer] [facility] Address [address] [place] [address] [address] [address] Care Team Providers Care Business Project Manager Name Role Phone Sendy Vincent MD Primary Care Provider [phone] Reason for Referral * Consultation (Routine) - Authorized Specialty Diagnoses / Procedures Referred By Dayan nortno Referred To Contact Urology Diagnoses Mixed stress and urge urinary incontinence Cystocele, unspecified Sendy Vincent MD [address] [place] [address] Phone: tel: [facility] [address] [place] [address] Phone: tel: fax: Referral ID Status Reason Start Date Expiration Date Visits Requested Visits Authorized [id number] Authorized Specialty Services Required 01/17/2025 01/17/2026 1 1 * Imaging (Routine) - Authorized Specialty Diagnoses / Procedures Referred By Dayan norton Referred To Contact Radiology Diagnoses Pelvic pain Procedures US Pelvis Transvaginal Sendy Vincent MD [address] [place] [address] Phone: tel: fax: [address] Phone: tel: fax: Referral ID Status Reason Start Date Expiration Date V isits Requested Visits Authorized [id number] Authorized 01/17/2025 01/17/2026 1 1 * Imaging (Routine) - Authorized Specialty Diagnoses / Procedures Referred By Contac t Referred To Contact Radiology Diagnoses Pelvic pain Procedures Us Pelvis complete Sendy Vincent MD [address] [place] [address] Phone: tel: fax: [address] Phone: tel: fax: Referral ID Status Reason Start Date Expiration Date V isits Requested Visits Authorized [id number] Authorized 01/17/2025 01/17/2026 1 1 * Consultation (Routine) - Authorized Specialty Diagnoses / Procedures Referred By Contac t Referred To Contact Obstetrics and Gynecology Diagnoses Pelvic pain Sendy Vincent MD [address] [place] [address] Phone: tel: fax: [address] Phone: tel: fax: Referral ID Status Reason Start Date Expiration Date Visits Requested Visits Authorized [id number] Authorized Specialty Services Required 01/17/2025 01/17/2026 1 1 Reason for Visit * Reason Comments Right side back pain Diabetes Hypertension Encounter Details Date Type Department Care Team (Late st Contact Info) Description 01/17/2025 9:15 AM EDT Office Visit [facility] MED & PEDS [address] [place] [address] Sendy Vincent MD [address] [place] [address] Pelvic pain (Primary Dx); Dietary counseling; Exercise counseling; Mixed stress and urge urinary incontinence; Type 2 diabetes mellitus without complication, without long-term current use of insulin ([facility]); Primary hypertension; Cystocele, unspecified; Amenorrhea Social History [...] 9:06 AM EDT documented in this encounter Progress Notes * Sendy Vincent MD - 01/17/2025 9:15 AM EDT Subjective Patient ID: Deborah Savage is a 54 y.o. female who presents for Right side back pain, Diabetes, and Hypertension. Deborah Savage is a patient with a history of type 2 diabetes, hypertension, and gynecological issues presenting for follow-up of her chronic conditions and ongoing pelvic pain. The patient reports ongoing hypertension, with blood pressure readings frequently above the target of 130/80. She is currently taking a combination pill containing amlodipine, valsartan, and hydrochlorothiazide for blood pressure management. Her diabetes is well-controlled with metformin 500 mg twice daily and Januvia 51 mg once daily, with a recent A1c of 5.7%. Deborah describes persistent pelvic pain, particularly in the right side and groin area, which radiates to the anterior part of the groin. The pain worsens around the time of her menstrual cycle, typically starting 5-6 days before her expected period. She reports her last menstrual period was in October. The patient is experiencing premenopausal symptoms, including hot flashes. The patient also reports urinary incontinence issues. She has been taking tolterodine 4 mg as prescribed, which has helped reduce the frequency of bathroom visits and prevented urine leakage accidents. However, she still experiences some urinary symptoms, particularly when coughing. Deborah mentions feeling like she has a claritza caida (likely referring to pelvic organ prolapse), which causes discomfort. Regarding treatment adherence, Deborah reports taking her medications as prescribed, including the combination antihypertensive pill and diabetes medications. She occasionally takes tolterodine for urinary symptoms and uses ibuprofen for pain management. The patient's limited insurance coverage has impacted her ability to follow up with specialists, including gynecology and urology referrals, as she would need to travel to [place] for these appointments. She has not been able to complete the previously ordered ultrasound due to insurance limitations. Review of Systems Constitutional: Negative for appetite change, fatigue and fever. HENT: Negative for congestion, postnasal drip and rhinorrhea. Eyes: Negative for discharge and redness. Respiratory: Negative for apnea, cough, chest tightness and shortness of breath. Cardiovascular: Negative for chest pain. Gastrointestinal: Negative for abdominal pain. Endocrine: Negative for polyphagia. Genitourinary: Positive for pelvic pain and urgency. Negative for difficulty urinating and dysuria. Musculoskeletal: Negative for arthralgias. Neurological: Negative for dizziness, light-headedness, numbness and headaches. Hematological: Negative for adenopathy. Does not bruise/bleed easily. Objective Visit Vitals BP (!) 159/102 (BP Location: Left arm, Patient Position: Sitting, BP Cuff Size: Large adult) Pulse 84 Temp 98.1 ??F (36.7 ??C) (Oral) Resp 20 Ht 5' 0.63 (1.54 m) Wt 178 lb 3.2 oz (80.8 kg) LMP 03/01/2024 (Approximate) SpO2 98% BMI 34.08 kg/m?? Smoking Status Never BSA 1.86 m?? Physical Exam Constitutional: General: She is not in acute distress. Appearance: She is obese. She is not ill-appearing. HENT: Head: Normocephalic and atraumatic. Nose: No congestion. Pulmonary: Effort: Pulmonary effort is normal. No respiratory distress. Breath sounds: Normal breath sounds. Musculoskeletal: Cervical back: Normal range of motion. Neurological: General: No focal deficit present. Mental Status: She is alert. Psychiatric: Mood and Affect: Mood normal. Assessment/Plan Problem List Items Addressed This Visit Type 2 diabetes mellitus without complication, without long-term current use of insulin ([facility]) Patient has type 2 diabetes with insulin resistance. Current HbA1c is 5.7%, indicating good glycemic control on the current medication regimen. Patient is on metformin and Januvia, which appear to beeffective in managing blood glucose levels. Plan: - Continue metformin 500 mg PO twice daily - Continue Januvia 50 mg PO daily - Monitor for medication side effects, particularly gastrointestinal symptom Relevant Orders Albumin, Random Urine W/Creatinine CBC auto differential Comprehensive Metabolic Panel Vitamin B12 (Cobalamin) and Folate Panel, Serum Lipid Panel, Standard POCT Glucose (Completed) POCT HGB A1C (Completed) Primary hypertension Patient reports having high blood pressure daily, [...] mmHg at least 75% of the time Mixed stress and urge urinary incontinence Relevant Orders Referral to Urology Pelvic pain - Primary Patient reports pelvic pain, particularly in the right groin area, which worsens around the time ofexpected menstruation. Last menstrual period was in October, [...] need to follow up with specialists in [place] due to insurance limitations Relevant Orders Referral to Obstetrics / Gynecology Us Pelvis complete US Pelvis Transvaginal Cystocele, unspecified Relevant Orders Referral to Urology Other Visit Diagnoses Dietary counseling Exercise counseling Amenorrhea Relevant Orders Estradiol FSH Anti-Mullerian Hormone (AMH), Female documented in this encounter Miscellaneous Notes * Assessment & Plan Note - Sendy Vincent MD - 01/17/2025 10:12 AM EDT Associated Problem(s): Pelvic pain Patient reports pelvic pain, particularly in the right groin area, which worsens around the time ofexpected menstruation. Last menstrual period was in October, [...] need to follow up with specialists in [place] due to insurance limitations * Assessment & Plan Note - Sendy Vincent MD - 01/17/2025 10:11 AM EDT Associated Problem(s): Type 2 diabetes mellitus without complication, without long-term current useof insulin ([facility]) Patient has type 2 diabetes with insulin resistance. Current HbA1c is 5.7%, indicating good glycemic control on the current medication regimen. Patient is on metformin and Januvia, which appear to beeffective in managing blood glucose levels. Plan: - Continue metformin 500 mg PO twice daily - Continue Januvia 50 mg PO daily - Monitor for medication side effects, particularly gastrointestinal symptom * Assessment & Plan Note - Sendy Vnicent MD - 01/17/2025 10:10 AM EDT Associated Problem(s): Primary hypertension Patient reports having high blood pressure daily, [...] mmHg at least 75% of the time documented in this encounter Plan of Treatment Scheduled Orders Name Type Priority Associated Diagnoses Orde r Schedule Us Pelvis complete Imaging Routine Pelvic pain Expected: 01/17/2025, Expires: 01/17/2026 US Pelvis Transvaginal Imaging Routine Pelvic pain Expected: 01/17/2025, Expires: 01/17/2026 Albumin, Random Urine W/Creatinine Lab Routine Type 2 diabetes mellitus without complication, without long-term current use of insulin ([facility]) Expected: 01/17/2025 (Approximate), Expires: 01/17/2026 CBC auto differential Lab Routine Type 2 diabetes mellitus without complication, without long-term current use of insulin ([facility]) Expected: 01/17/2025 (Approximate), Expires: 01/17/2026 Comprehensive Metabolic Panel Lab Routine Type 2 diabetes mellitus without complication, without long-term current use of insulin ([facility]) Expected: 01/17/2025 (Approximate), Expires: 01/17/2026 Estradiol Lab Routine Amenorrhea Expected: 01/17/2025, Expires: 01/17/2026 FSH Lab Routine Amenorrhea Expected: 01/17/2025, Expires: 01/17/2026 Anti-Mullerian Hormone (AMH), Female Lab Routine Amenorrhea Expected: 01/17/2025 (Approximate), Expires: 01/17/2026 Vitamin B12 (Cobalamin) and Folate Panel, Serum Lab Routine Type 2 diabetes mellitus without complication, without long-term current use of insulin ([facility]) Expected: 01/17/2025 (Approximate), Expires: 01/17/2026 Lipid Panel, Standard Lab Routine Type 2 diabetes mellitus without complication, without long-term current use of insulin ([facility]) Expected: 01/17/2025 (Approximate), Expires: 01/17/2026 Scheduled Referrals [...] complication, without long-term current use of insulin ([facility]) POCT GLUCOSE Routine 01/17/2025 9:47 AM EDT Type 2 diabetes mellitus without complication, without long-term current use of insulin ([facility]) documented in this encounter Results * POCT [...] Media Lot # [id number] Lot# Expiration Date 9,025 Blood Capillary blood specimen / Unknown 01/17/2025 9:47 AM EDT Sendy Vincent MD POINT OF CARE TEST ENTER/EDIT ORDERABLES Final Result documented in this encounter Visit Diagnoses Diagnosis Pelvic pain- Primary Dietary counseling Dietary surveillance and counseling Exercise counseling Mixed stress and urge urinary incontinence Mixed incontinence urge and stress (male)(female) Type 2 diabetes mellitus without complication, without long-term current use of insulin ([facility]) Primary hypertension Unspecified essential hypertension Cystocele, unspecified Amenorrhea Absence of menstruation documented in this encounter Additional Health Concerns Assessment Noted Time PHQ-9 Depression Total Score: 0 04/12/20 24 1:49 PM EDT documented as of this encounter Care Teams Business Project Manager Relationship Specialty Start Date End Date Sendy Vincent MD [address] [place] [id number] PCP - General Family Medicine 03/01/24 documented as of this encounter
--- OUTSIDE RECORDS SUMMARY | 2025-01-18 13:47 | XMS_ITS | Encounter Summary ---
Author Organization [employer] Address [address] [facility] 7t [place] [address] Care Team Providers Care Loader Magazine Grinder Name Role Phone Sendy Vincent MD Primary Care Provider [phone] Reason for Visit * Reason Onset Date Comments Med Refill 01/14/2025 Encounter Details Date Type Department Care Team (Late st Contact Info) Description 01/14/2025 Refill [facility] MED & PEDS [address] [place] [address] Sendy Vincent MD [address] [place] [address] Type 2 diabetes mellitus without complication, without long-term current use of insulin ([facility]) Social History Tobacco Use Types Packs/Day Years [...] complication, without long-term current use of insulin ([facility]) documented in this encounter Additional Health Concerns Assessment Noted Time PHQ-9 Depression Total Score: 0 04/12/20 1:49 PM EDT documented as of this encounter Care Teams Loader Magazine Grinder Relationship Specialty Start Date End Date Sendy Vincent MD [address] [place] [id number] PCP - General Family Medicine 03/01/24 documented as of this encounter
--- OUTSIDE RECORDS SUMMARY | 2025-01-18 13:47 | XMS_ITS | Encounter Summary ---
Author Organization [employer] Address [address] [facility] 7t [place] [address] Care Team Providers Care Assistant Printer Floor Covering Name Role Phone Sendy Vincent MD Primary Care Provider [phone] Encounter Details Date Type Department Care Team [...] documented as of this encounter Care Teams Assistant Printer Floor Covering Relationship Specialty Start Date End Date Sendy Vincent MD [address] [place] [address] PCP - General Family Medicine 03/01/24 documented as of this encounter
--- OUTSIDE RECORDS SUMMARY | 2025-01-18 13:47 | XMS_ITS | Encounter Summary ---
Author Organization [employer] Address [address] [facility] [address] [place] [address] Care Team Providers Care Imaging Specialist Name Role Phone Sendy Vincent MD Primary Care Provider [phone] Reason for Visit * Reason Onset Date Comments Medication Question 03/03/2024 Encounter Details Date Type Department Care Team ([facility] st Contact Info) Description 03/03/2024 Telephone [facility] MEDICINE [address] [place] [address] Sendy Vincent MD [address] [place], [place] [id number] Medication Question Social History Tobacco Use Types [...] on filedocumented in this encounter Care Teams Imaging Specialist Relationship Specialty Start Date End Date Sendy Vincent MD [address] [place] [id number] PCP - General Family Medicine 03/01/24 documented as of this encounter
--- OUTSIDE RECORDS SUMMARY | 2025-01-18 13:47 | XMS_ITS | Encounter Summary ---
Author Organization [employer] Address [address] [facility] 7t [place] [address] Care Team Providers Care Steam And Gas Turbines Assembler Name Role Phone Sendy Vincent MD Primary Care Provider [phone] Reason for Visit * Reason Comments Med Refill Encounter Details Date Type Department Care Team ([facility] st Contact Info) Description 07/15/2024 Refill [facility] MED & PEDS [address] [place] [address] Sendy Vincent MD [address] [place] [address] Type 2 diabetes mellitus without complication, without long-term current use of insulin ([facility]) Social History Tobacco Use Types Packs/Day Years [...] complication, without long-term current use of insulin ([facility]) documented in this encounter Additional Health Concerns Assessment Noted Time PHQ-9 Depression Total Score: 0 04/12/20 1:49 PM EDT documented as of this encounter Care Teams Steam And Gas Turbines Assembler Relationship Specialty Start Date End Date Sendy Vincent MD [address] [place] [id number] PCP - General Family Medicine 03/01/24 documented as of this encounter
[2025-01-18 14:02] LABS: MANUAL DIFF FLAG NO
[2025-01-18 14:05] LABS: Basophils Percent Auto 0.4 % (0-2); Eosinophils Absolute Auto 0.2 X10*3/uL (0.0-0.4); Eosinophils Percent Auto 2.2 % (0-4); Hematocrit 41.8 % (37.0-47.0); Hemoglobin 13.6 g/dl (12.0-16.0); Imm Gran Abs Auto 0.03 X10*3/uL (0.00-0.03); Imm Gran Pct Auto 0.3 % (0.0-0.4); Lymphocytes Absolute Auto 3.3 X10*3/uL (1.2-4.9); Lymphocytes Percent Auto 36.6 % (20-40); Mean Corpuscular HGB Conc 32.5 g/dl (31.0-35.0); Mean Corpuscular Hemoglobin 27.8 pg (27.0-33.0); Mean Corpuscular Volume 85.3 fL (80.0-98.0); Mean Platelet Volume 11.8 fL (9.4-12.3); Monocytes Absolute Auto 0.7 X10*3/uL (0.1-1.2); Monocytes Percent Auto 7.7 % (2-11); Neutrophils Absolute Auto 4.8 x10*3/uL (2.0-8.3); Neutrophils Percent Auto 52.8 % (45-73); Platelet Count 229 X10*3/uL (160-400); Red Cell Distribution Width 13.3 % (11.0-16.0)
[2025-01-18 14:44] LABS: Alanine Aminotransferase 39 U/L (0-31); Albumin Level 4.2 g/dL (3.5-5.0); Alkaline Phosphatase 68 U/L (39-117); Anion Gap 14 (12-20); Aspartate Amino Transferase 28 U/L (5-31); Bilirubin Total 0.3 mg/dL (0.0-1.0); Blood Urea Nitrogen 15 mg/dL (9-16); Calcium 9.4 mg/dL (8.4-10.2); Carbon Dioxide 27 mmol/L (22-29); Chloride 104 mmol/L (96-108); Cholesterol 206 mg/dL (<200); Estimated Glomerular Filt Rate > 60; Glucose Random 83 mg/dL (60-115); HDL Cholesterol 42 mg/dL (>40); Potassium 3.7 mmol/L (3.3-5.1); Sodium 141 mmol/L (135-145); Total Protein 7.5 g/dL (6.5-8.0)
[2025-01-18 14:53] LABS: LDL Cholesterol Calculated 145 mg/dL (<100); Triglycerides 99 mg/dL (<150)
[2025-01-18 15:05] LABS: Folate 13.9 ng/mL (> or = 4.0); Vitamin B12 609 pg/mL (200-900)
[2025-01-21 13:04] LABS: Anti-Mullerian Hormone-Female 0.02 ng/mL
[2025-02-01 23:24] LABS: Estradiol Ultra Sensitive 10 pg/mL
== END 2025-01-18 12:47 | disposition home or self-care (01) ==
LOC: HO.CHCLDS 12:46
PROVIDERS: Visit Provider Family Medicine
DX: E11.9 Type 2 diabetes mellitus without complications (principal); N91.2 Amenorrhea, unspecified
CPT/HCPCS: 36415; 80053; 80061; 82166; 82607; 82670; 82746; 83001; 85025

== ENCOUNTER 2025-02-23 14:45 | Outpatient (REF) | payer MEDICAID, OTHER, SELFPAY ==
--- NOTE | ~2025-02-23 | US_ITS ---
CLINICAL HISTORY: 53 yo F with a hx of ovarian cysts, pelvic pain R>L, send to [facility] Transabdominal and transvaginal pelvic ultrasound Comparison: None Findings: Uterus 10.5 x 3.8 x 6.4 cm. Endometrium 5 mm. No significant free fluid. Right ovary 1.8 x 2.6 x 1.5 cm. No significant focal abnormality. Left ovary 4.0 x 5.4 x 3.6 cm. 5.8 x 4.1 cm septated cyst. Recommend follow-up ultrasound 1-2 months. Impression: Septated left ovarian cyst, recommend 1-2 month follow-up This document has been electronically signed by: Paul Way MD on 02/23/2025 22:48:57
--- OUTSIDE RECORDS SUMMARY | 2025-02-23 16:57 | XMS_ITS | Encounter Summary ---
Author Organization [employer] Address [address] [facility] [address] [place] [address] Care Team Providers Care Education Intern Name Role Phone Sendy Vincent MD Primary Care Provider [phone] Reason for Visit * Reason Onset Date Comments Medication Question 03/03/2024 Encounter Details Date Type Department Care Team ([facility] st Contact Info) Description 03/03/2024 Telephone [facility] MEDICINE [address] [place] [address] Sendy Vincent MD [address] [place], [place] [id number] Medication Question Social History Tobacco Use Types [...] as of this encounter Plan of Treatment Upcoming Encounters Date Type Department Care Team (Late st Contact Info) Description 03/23/2025 11:30 AM EDT Office Visit [facility] CH[facility] MED & PEDS [address] [place] [address] Sendy Vincent MD [address] [place] [address] 07/25/2025 2:30 PM EST Office Visit [facility] OPTOMETRY [address] [place] [address] Latosha Shah, OD [address] [place] [address] documented as of this encounter Visit Diagnoses Not on filedocumented in this encounter Care Teams Education Intern Relationship Specialty Start Date End Date Sendy Vincent MD [address] [place] [address] PCP - General Family Medicine 03/01/24 documented as of this encounter
== END 2025-02-23 14:46 | disposition home or self-care (01) ==
LOC: HO.US 14:45
PROVIDERS: PCP Family Medicine; Visit Provider Family Medicine
DX: R10.2 Pelvic and perineal pain (principal)
CPT/HCPCS: 76830; 76856

== ENCOUNTER → 2025-02-23 14:48 | Outpatient (BNV) | payer SELFPAY | PROVIDERS: PCP Family Medicine; Visit Provider Radiology Diagnostic Radiology | DX: N83.202 Unspecified ovarian cyst, left side (principal) | CPT/HCPCS: 76830; 76856 ==

== ENCOUNTER 2025-05-27 14:23 | Outpatient (REF) | payer MEDICAID, OTHER, SELFPAY ==
--- NOTE | ~2025-05-27 | US_ITS ---
EXAMINATION: US PELVIS CLINICAL INFORMATION: Follow-up left ovarian cyst. COMPARISON: 02/23/2025. TECHNIQUE: Ultrasound of the pelvis is performed using both transabdominal and transvaginal transducers along with Doppler. Transvaginal imaging is performed due to inadequate visualization transabdominally. FINDINGS: Uterus: The uterus is anteverted and measures 9.2 x 4.2 x 5.7 cm. The cervix is normal with small nabothian cysts present. The double wall endometrial thickness is 3 mm. The uterus is smooth in contour and has somewhat heterogeneous myometrial echogenicity. No visible fibroid. Adnexa: Both ovaries are visualized. There is normal color flow to the adnexa. There is no ovarian torsion. There is no pelvic ascites or fluid collection. There are no adnexal masses. Right ovary measures 1.8 x 2.6 x 1.5 cm. Normal sonographic appearance. Left ovary measures 6.3 x 4.3 x 4.6 cm. Volume = 65.3 mL. There is a follicular cyst present measuring 5.8 x 4.0 x 4.2 cm (previously 5.8 x 3.3 x 4.2 cm). It has some simple appearing septations present without nodularity. This is a benign entity. US/US pelvic and transvaginal IMPRESSION: 1. Essentially stable minimally complicated left ovarian cyst measuring 5.8 x 4.0 x 4.2 cm. Appearance favors a benign entity. 2. Right ovary is normal. 3. Normal endometrium at 3 mm. Electronically signed by: Misael Mccurdy MD 05/27/2025 03:25 PM EDT
--- OUTSIDE RECORDS SUMMARY | 2025-05-27 14:28 | XMS_ITS | Encounter Summary ---
Author Organization [employer] Address [address] [facility] 7t [place] [address] Care Team Providers Care Manager Company Name Role Phone Sendy Vincent MD Primary Care Provider [phone] Reason for Visit * Reason Comments Med Refill Encounter Details Date Type Department Care Team ([facility] st Contact Info) Description 03/03/2025 Refill [facility] CH[facility] MED & PEDS [address] [place] [address] Sendy Vincent MD [address] [place] [address] Hypertension, unspecified type Social History Tobacco Use Types Packs/Day Years [...] Care Team (Late st Contact Info) Description 06/23/2025 11:30 AM EDT Office Visit [facility] CHC MED & PEDS [address] [place] [address] Sendy Vincent MD [address] [place] [address] 07/25/2025 2:30 PM EST Office Visit [facility] OPTOMETRY [address] [place] [address] TarkaLatosha, OD [address] [place] [address] documented as of this encounter Visit Diagnoses Diagnosis Hypertension, unspecified type documented in this encounter Additional Health Concerns Assessment Noted Time PHQ-9 Depression Total Score: 0 04/12/20 24 1:49 PM EDT documented as of this encounter Care Teams Manager Company Relationship Specialty Start Date End Date Sendy Vincent MD [address] [place] [address] PCP - General Family Medicine 03/01/24 documented as of this encounter
--- OUTSIDE RECORDS SUMMARY | 2025-05-27 14:28 | XMS_ITS | Encounter Summary ---
Author Organization [employer] Address [address] [facility] 7t [place] [address] Care Team Providers Care Sales Representative Uniforms Name Role Phone Sendy Vincent MD Primary Care Provider [phone] Reason for Visit * Reason Onset Date Comments Medication Question 03/03/2024 Encounter Details Date Type Department Care Team ([facility] st Contact Info) Description 03/03/2024 Telephone [facility] MEDICINE [address] [place] [address] Sendy Vincent MD [address] [place] [address] Medication Question Social History Tobacco Use Types [...] Description 06/23/2025 11:30 AM EDT Office Visit [facility] CH[facility] MED & PEDS [address] [place] [address] Sendy Vincent MD [address] [place] [address] 07/25/2025 2:30 PM EST Office Visit [facility] OPTOMETRY [address] [place] [address] Latosha Shah, OD [address] [place] [address] documented as of this encounter Visit Diagnoses Not on filedocumented in this encounter Care Teams Sales Representative Uniforms Relationship Specialty Start Date End Date Sendy Vincent MD [address] [place] [id number] PCP - General Family Medicine 03/01/24 documented as of this encounter
--- OUTSIDE RECORDS SUMMARY | 2025-05-27 14:28 | XMS_ITS | Encounter Summary ---
Author Organization [employer] Address [address] [facility] 7[address] [place] [address] Care Team Providers Care Utility Hand Name Role Phone Sendy Vincent MD Primary Care Provider [phone] Reason for Visit * Reason Onset Date Comments Referral 02/23/2025 Encounter Details Date Type Department Care Team ([facility] st Contact Info) Description 02/23/2025 Telephone [facility] MEDICINE [address] [place] [address] Sendy Vincent MD [address] [place] [address] Referral Social History Tobacco Use Types Packs/Day Years [...] encounter Miscellaneous Notes * Telephone Encounter - Kaitlyn Cisneros - 02/23/2025 4:12 PM EDT TC to patient and informed her that due to her insurance [facility] is the only place where is accepted.Patient understood and agreed with plan and had no further questions. * Telephone Encounter - Kenny Cisneros - 02/23/2025 9:21 AM EDT TC from daughter inquiring about the referral location placed for OBGYN at [facility]. She reports the location is approximately a [address] and is requesting if there are any closer options available. Please return call [phone] documented in this encounter Plan of Treatment Upcoming Encounters Date Type Department Care Team (Late st Contact Info) Description 06/23/2025 11:30 AM EDT Office Visit [facility] CHC MED & PEDS [address] [place] [address] Sendy Vincent MD [address] [place] [address] 07/25/2025 2:30 PM EST Office Visit [facility] OPTOMETRY [address] [place] [address] Latosha Shah, OD [address] [place] [address] documented as of this encounter Visit Diagnoses Not on filedocumented in this encounter Additional Health Concerns Assessment Noted Time PHQ-9 Depression Total Score: 0 04/12/20 24 1:49 PM EDT documented as of this encounter Care Teams Utility Hand Relationship Specialty Start Date End Date Sendy Vincent MD [address] [place] [address] PCP - General Family Medicine 03/01/24 documented as of this encounter
--- OUTSIDE RECORDS SUMMARY | 2025-05-27 14:28 | XMS_ITS | Encounter Summary ---
Author Organization [employer] Address [address] [facility] 7t [place] [address] Care Team Providers Care Fire Prevention Officer Name Role Phone Sendy Vincent MD Primary Care Provider [phone] Reason for Visit * Reason Comments Med Refill Encounter Details Date Type Department Care Team ([facility] st Contact Info) Description 07/15/2024 Refill [facility] CHC MED & PEDS [address] [place] [address] Sendy Vincent MD [address] [place] [address] Type 2 diabetes mellitus without complication, without long-term current use of insulin ([facility]) Social History Tobacco Use Types Packs/Day [...] Description 06/23/2025 11:30 AM EDT Office Visit [facility] CHC MED & PEDS [address] [place] [address] Sendy Vincent MD [address] [place] [address] 07/25/2025 2:30 PM EST Office Visit [facility] OPTOMETRY [address] [place], [place] [phone] TarLatosha mcdonald, OD [address] [place] [address] documented as of this encounter Visit Diagnoses Diagnosis Type 2 diabetes mellitus without complication, without long-term current use of insulin ([facility]) documented in this encounter Additional Health Concerns Assessment Noted Time PHQ-9 Depression Total Score: 0 04/12/20 1:49 PM EDT documented as of this encounter Care Teams Fire Prevention Officer Relationship Specialty Start Date End Date Sendy Vincent MD [address] [place] [address] PCP - General Family Medicine 03/01/24 documented as of this encounter
--- OUTSIDE RECORDS SUMMARY | 2025-05-27 14:28 | XMS_ITS | Clinical Summary ---
Author Organization [employer] Address [address] [facility] [address] [place] [address] Care Team Providers Care Music Manager Name Role Phone Sendy Vincent MD Primary Care Provider Allergies No known active allergies Medications Blood Pressure kit 1 Units Once per day. 1 kit 024 Active Blood Glucose Monitoring Suppl (go2 media [place]) w/Device kitIndications :Type 2 diabetes mellitus without complication, without long-term current use of insulin ([facility]) Use to test blood sugar BID 1 kit 1 024 Active loratadine (Claritin) 10 MG tablet Take 10 mg by mouth Once per day. 024 Active EPINEPHrine (Epipen) 0.3 MG/0.3ML injection syringe INJECT INTRAMUSCULARLY FOR ALLERGIC REACTIONS, CALL 911 SEEK MEDICAL ATTENTION 024 Active famotidine (Pepcid) 20 MG tabletIndicati [...] or fever). 120 capsule 1 025 Active SITagliptin (Januvia) 50 MG tabletIndicati ons:Type 2 diabetes mellitus without complication, without long-term current use of insulin ([facility]) TAKE ONE TABLET BY MOUTH EVERY DAY 90 tablet 1 025 Active amLODIPine-Veronika sartan-HCTZ 10-160-12.5 MG tablet Take 1 tablet by mouth Once per day. 90 tablet 1 025 Active tolterodine LA (Detrol LA) 4 MG 24 hr capsule Take 1 capsule (4 mg) by mouth Once per day. Do not crush, chew, or split. 90 capsule 1 025 Active rosuvastatin (Crestor) 40 MG tablet Take 1 tablet (40 mg) by mouth Once per day. 90 tablet 1 025 Active acetaminophen (Tylenol) 325 MG tablet TAKE 1 OR 2 TABLETS BY MOUTH EVERY 6 HOURS NEEDED FOR PAIN OR FEVER 120 tablet 1 025 Active Easy Touch Lancets 33G/Twist miscIndication s:Type 2 diabetes mellitus without complication, without long-term current use of insulin ([facility]) TEST BLOOD SUGAR TWICE DAILY 100 each 025 Active Alcohol Swabs (Alcohol Prep) 70 % padsIndication s:Type 2 diabetes mellitus without complication, without long-term current use of insulin ([facility]) USE TWICE DAILY 100 each 025 Active FREESTYLE LITE test stripIndicatio ns:Type 2 diabetes mellitus without complication, without long-term current use of insulin ([facility]) TEST BLOOD SUGAR TWICE DAILY 100 strip 025 Active metFORMIN (Glucophage) 500 MG tabletIndicati ons:Type 2 diabetes mellitus without complication, without long-term current use of insulin ([facility]) TAKE ONE TABLET TWICE DAILY WITH BREAKFAST AND SUPPER 180 tablet 1 025 Active ibuprofen 600 MG tabletIndicati ons:Routine health maintenance TAKE ONE TABLET EVERY 8 HOURS NEEDED FOR PAIN OR FEVER 100 tablet 025 Active ibuprofen 600 MG tabletIndicati ons:Routine health maintenance Take 1 tablet (600 mg) by mouth every 8 (eight) hours if needed (pain or fever). 100 tablet 025 2024 Discontinued Active Problems Problem Noted Date Diagnosed Date Left ovarian cyst 03/23/2025 Assessment & Plan (03/24/2025 9:22 AM EDT): Recent pelvic ultrasound revealed a left ovarian cyst. Patient reports right- sided pelvic pain, which is discordant with the ultrasound findings. Endometrial thickness measured at 5 mm. Plan: - Refer to laborer brush clearing for evaluation and management of ovarian cyst - Repeat pelvic ultrasound in 2 months - Patient to call and schedule gynecology appointment Mixed stress and urge urinary incontinence 01/17 [...] for urinary incontinence as needed - Order anti-M llerian hormone test to assess menopausal status - Educate patient on the need to follow up with specialists in [place] due to insurance limitations Cystocele, unspecified 01/17/2025 [...] needed Primary hypertension 09/27/2024 Assessment & Plan (03/24/2025 9:21 AM EDT): Patient reports normal blood pressure readings at home but exhibits elevated readings in the clinic setting, suggesting possible white coat hypertension. Current medication regimen appears to be effective for home blood pressure control. Plan: - Continue current antihypertensive medication regimen - Patient to bring home blood pressure monitor to next visit for comparison with clinic readings - Target blood pressure: less than 130/80 mmHg - Follow up in 3 months Assessment & Plan (01/17/2025 10:10 AM EDT): [...] per home blood pressure readings Continues with vabldfqlrd-ldmqozvnz-dtdksdapzjrueslskwh 5-1 60-12.5 mg daily Encouraged lifestyle interventions and follow-up precautions reviewed Type 2 diabetes mellitus wit hout complication, without long-term current use of insulin 07/20/2024 Assessment & Plan (03/24/2025 9:21 AM EDT): Patient's fasting blood glucose levels have been generally well-controlled, with one isolated elevated reading of 121 mg/dL. Last HbA1c from 2 months ago was within target range. Currently on metformin twice daily. Plan: - Continue metformin twice daily - Repeat HbA1c next month - Encourage consistent dietary habits to maintain glucose control - Continue home glucose monitoring Assessment & Plan (01/17/2025 10:11 AM EDT): [...] recommended reduction of 20-30% of maintenance calories; statistician mathematical referral offered. Recommended to decrease soda and sugary beverage consumption. Recommended at least 20 g per meal of protein to assist with satiety. Recommended at least 150 min/week of moderate intensity exercise. Encounters Date Type Department Care Team Description 05/20/2025 Telephone [facility] MEDICINE [address] [place] [phone] Sendy Vincent MD Results 05/04/2025 Refill [facility] CHC MED & PEDS [address] [place] [address] Sendy Vincent MD Routine health maintenance 04/09/2025 Refill [facility] MED & PEDS [address] [place] [address] Sendy Vincent MD Type 2 diabetes mellitus without complication, without long-term current use of insulin ([facility]/H[facility]) 04/02/2025 Refill [facility] MED & PEDS [address] [place] [address] Sendy Vincent MD Type 2 diabetes mellitus without complication, without long-term current use of insulin (CMS/HCC) 03/23/2025 11:30 AM EDT Office Visit [facility] MED & PEDS [address] [place] [address] Sendy Vincent MD Left ovarian cyst (Primary Dx); Screening for colon cancer; Primary hypertension; Type 2 diabetes mellitus without complication, without long-term current use of insulin (CMS/HCC) 03/23/2025 Travel 03/22/2025 Telephone [facility] MED & PEDS [address] [place] [address] Sendy Vincent MD Chart prep 03/16/2025 Patient Outreach [facility] [address] [place] [phone] Sendy Vincent MD Pre-visit Planning ([facility] screening completed on 01/17/25) 03/03/2025 Refill [facility] MED & PEDS [address] [place] [address] Sendy Vincent MD Hypertension, unspecified type 02/28/2025 Refill [facility] CHC MED & PEDS [address] [place] [address] Sendy Vincent MD from Last 3 Months Immunizations Immunization Administration Dates Next Due Pneumococcal Conjugate PCV [...] Sign Reading Time Taken Comments Blood Pressure 146/90 03/23/2025 11:29 AM EDT Pulse 84 03/23/2025 11:29 AM EDT Temperature 37.2 C (99 F) 03/23/2025 11:29 AM EDT Respiratory Rate 20 03/23/2025 11:29 AM EDT Oxygen Saturation 98% 03/23/2025 11:29 AM EDT Inhaled Oxygen Concentration - - Weight 79.4 kg (175 lb) 03/23/2025 11:29 AM EDT Height 154 cm (5' 0.63 ) 03/23/2025 11:29 AM EDT Body Mass Index 33.47 03/23/2025 11:29 AM EDT Plan of Treatment Upcoming Encounters Date Type Department Care Team (Late st Contact Info) Description 06/23/2025 11:30 AM EDT Office Visit [facility] CHC MED & PEDS [address] [place] [address] Sendy Vincent MD [address] [place] [address] 07/25/2025 2:30 PM EST Office Visit [facility] OPTOMETRY [address] [place], [place] [phone] Latosha Shah, OD [address] [place] [address] Health Maintenance Due Date Last Done Comments CT Colonography 1970 Colonoscopy 1970 FIT 1970 Sigmoidoscopy 1970 Disability Screening 1970 Hepatitis B Vaccines (1 of 3 - 19+ 3-dose series) 1989 Mammogram 2010 Diabetes: Urine Protein Screening 03/01/2025 03/01/2024 Depression Screening 04/12/2025 04/12/2024, 04/12/20 24 Diabetes: Foot Exam 04/12/2025 04/12/2024, 04/12/2024, 04/12/2024, Additional history exists COVID-19 Vaccine ( season) 2025 Influenza Vaccine (#1) 2025 Diabetes: Hemoglobin A1C 07/20/2025 01/17/2025, 02/07 Alcohol/Substance Use Screening 01/17/2026 01/17/2025 SDOH Screening 01/17/2026 01/17/2025 Lipid Panel 01/18/2026 01/18/2025, 03/01/2024 Tobacco Screening 03/24/2026 03/24/2025 FOBT 04/27/2026 04/27/2025 Eye Exam 07/20/2026 07/20/2024, 07/09, 07/20/2024, Additional history exists Cervical Cancer Screening 03/30/2027 HPV/Cotest 03/30/2027 Pap Smear 03/30/2027 03/30/2024 Colorectal Cancer Screening 04/27/2028 FIT DNA/Cologuard 04/27/2028 04/27/2025 DTaP/Tdap/Td Vaccines (2 - Td or Tdap) [...] patient's age to complete this topic Meningococcal B Vaccine Aged Out No l onger eligible based on patient's age to complete [...] Procedure Name Priority Date/Time Associated Diagnosis Comments LAB COLOGUARD COLON CANCER SCREEN Routine 04/27/2025 1:00 PM EDT Screening for colon cancer LIPID PANEL, STANDARD Routine 01/18/2025 1:00 PM EDT Type 2 diabetes mellitus without complication, without long-term current use of insulin (CMS/HCC) POCT GLYCATED HEMOGLOBIN, TOTAL Routine 01/17/2025 9:48 AM EDT Type 2 diabetes mellitus without complication, without long-term current use of insulin (CMS/HCC) THINPREP IMAGING SYSTEM PAP Routine 03/30/2024 11:55 AM EDT Cervical cancer screening ALBUMIN, RANDOM URINE W/CREATININE Routine 03/01/2024 10:50 AM EDT HEPATITIS C AB W/REFL TO HCV RNA, QN, PCR Routine 03/01/2024 10:44 AM EDT Encounter for health-related screening HIV 1/2 ANTIGEN/ANTIBODY, FOURTH GENERATION W/RFL Routine 03/01/2024 10:44 AM EDT Encounter for health-related screening from Last 3 Months or Most Recently Relevant to Health Maintenance Results * Cologuard?? colon cancer screening (04/27/2025 1:00 PM EDT) Cologuard Result Negative Negative 05/02/20 1:27 PM EDT [employer] (CLIA #:[id number]) Comment: The Cologuard (TM) test was performed on this specimen. NEGATIVE TEST RESULT. A negative Cologuard result indicates a low likelihood that a colorectal cancer (CRC) or advanced adenoma (adenomatous polyps with more advanced pre-malignant features) is present. The chance that a person with a negative Cologuard test has a colorectal cancer is less than 1 in 1500 (negative predictive value >99.9%) or has an advanced adenoma is less than 5.3% (negative predictive value 94.7%). These data are based on a prospective cross-sectional study of 10,000 individuals at average risk for colorectal cancer who were screened with both Cologuard and colonoscopy. (Rubén Diamond al, N Engl J Med 2014;370(14):1286- 1297) The normal value (reference range) for this assay is negative. COLOGUARD RE-SCREENING RECOMMENDATION: Periodic colorectal cancer screening is an important part of preventive healthcare for asymptomatic individuals at average risk for colorectal cancer. Following a negative Cologuard result, the [place] [employer] Society and U.S. Multi-Society Task Force screening guidelines recommend a Cologuard re-screening interval of 3 years. References: [employer] Guideline for Colorectal Cancer Screening: https://www.cancer.org/cancer/fsouz-auompi-cpbjeg/tumxvzvwa-zbpbmzuxd-vcrirur/ac s-rec ommendations.html.; Stanley DK, Mac SANTOS, Castillo SalgadoK, Colorectal Cancer Screening: Recommendations for Physicians and Patients from the U.S. Multi-Society Task Force on Colorectal Cancer Screening , Am J Gastroenterology 2017; 112:5166-5962. TEST DESCRIPTION: Composite algorithmic analysis of stool DNA-biomarkers with hemoglobin immunoassay. Quantitative values of individual biomarkers are not reportable and are not associated with individual biomarker result reference ranges. Cologuard is intended for colorectal cancer screening of adults of either sex, 45 years or older, who are at average-risk for colorectal cancer (CRC). Cologuard has been approved for use by the U.S. FDA. The performance of Cologuard was established in a cross sectional study of average-risk adults aged 50-84. Cologuard performance in patients ages 45 to 49 years was estimated by sub-group analysis of near-age groups. Colonoscopies performed for a positive result may find as the most clinically significant lesion: colorectal cancer [4.0%], advanced adenoma (including sessile serrated polyps greater than or equal to 1cm diameter) [20%] or non- advanced adenoma [31%]; or no colorectal neoplasia [45%]. These estimates are derived from a prospective cross-sectional screening study of 10,000 individuals at average risk for colorectal cancer who were screened with both Cologuard and colonoscopy. (Rubén Blum, N Engl J Med 2014;370(14):8395-0307.) Cologuard may produce a false negative or false positive result (no colorectal cancer or precancerous polyp present at colonoscopy follow up). A negative Cologuard test result does not guarantee the absence of CRC or advanced adenoma (pre-cancer). The current Cologuard screening interval is every 3 years. ([employer] [employer] and U.S. Multi-Society Task Force). Cologuard performance data in a 10,000 patient pivotal study using colonoscopy as the reference method can be accessed at the following location: www.Pyreos.Letyano/results. Additional description of the Cologuard test process, warnings and precautions can be found at www.[employer]yr[employer].com. Stool specimen (specimen) 04/27/2025 1:00 PM EDT 04/28/2025 1:39 PM EDT us Sendy Vincent MD LAB MOLECULAR DIAGNOSTICS ORD ERABLES Final Result [employer] (CLIA #:[id number]) [address] [place] [address], * (ABNORMAL) Lipid Panel, Standard (01/18/2025 1:00 PM EDT) Triglycerides 99 <150 mg/dL [facility] Comment:Desirable Triglyceri de: less than 150 mg/dLBorderline High Triglyceride 150-199 mg/dLHigh Triglyceride: 200-499 mg/dLVery High Triglyceride: greater than or equal to 5OO mg/dL Cholesterol 206(H) <200 mg/dL [facility] Comment:Desirable Cholestero l: less than 200 mg/dLBorderline High Cholesterol: 200-239 mg/dLHigh Cholesterol: greater than 239 mg/dL LDL Cholesterol Calculated 145(H) <100 mg/dL [facility] Comment:Desirable LDL: less than 100 mg/dLNear Optimal/Above Optimal LDL: 110- 129 mg/dLBorderline High LDL: 130-159 mg/dLHigh LDL: 160-189 mg/dLVery High LDL: greater than or equal to 190 mg/dL HDL Cholesterol 42 >40 mg/dL [facility] Comment:Desirable HDL: great er than 40 mg/dL Note: This HDL assay may give artificially low results in patients with liver disease. Blood Venous blood specimen / Unknown 01/18/2025 1:00 PM EDT 01/18/2025 2:00 PM EDT Sendy Vincent MD LAB BLOOD ORDERABLES Final Re sult [facility] [address] [place] [address] [phone] * POCT HGB A1C (01/17/2025 9:48 AM EDT) Hemoglobin A1C 5.7 4.0 - 6.0 % QC Media Lot # [id number] Lot# Expiration Date 122, Blood 01/17/2025 9:48 AM EDT Sendy Vincent MD POINT OF CARE TEST ENTER/EDIT ORDERABLES Final Result * Pap Smear (03/30/2024 11:55 AM EDT) SOURCE: SEE NOTE [facility] Comment:None given Report Status: [facility] Clinical Information: SEE NOTE [facility] Comment:None given LMP: SEE NOTE [facility] Comment:NONE GIVEN Prev. PAP: SEE NOTE [facility] Comment:NONE GIVEN Prev. BX: SEE NOTE [facility] Comment:NONE GIVEN Statement Of Adequacy: SEE NOTE [facility] Comment:Satisfactory for mihai luation.Endocervical/transformation zone componentpresent. General Categorization: [facility] Interpretation/Result: SEE NOTE [facility] Comment:Cytology Results: Ne gative for intraepitheliallesion or malignancy. Cytology Comment SEE NOTE [facility] Comment:This Pap test has be en evaluated with computerassisted technology. Reproduction Order Processor: SEE NOTE [facility] Comment:GSG, CT(ASCP)CT scre ening location: [place] [address] Review Reproduction Order Processor: [facility] Pathologist [facility] PAP Infection TNP [facility] See Note SEE NOTE [facility] Comment:EXPLANATORY NOTE:The Pap is a screening test for cervical cancer. It isnot a diagnostic test and is subject to false negativeand false positive results. It is most reliable when asatisfactory sample, regularly obtained, is submittedwith relevant clinical findings and history, and whenthe Pap result is evaluated along with historic andcurrent clinical information.THIS TEST WAS PERFORMED AT:[facility] [place] [phone] MARSH MD Pap Vial Vaginal structure / Unknown 03/30/2024 11:55 AM EDT 03/30/2024 2:10 PM EDT Narrative [facility] - 04/02/2024 12:46 PM EDT SEE SCANNED RESULTS IN EMR us Sendy Vincent MD LAB PATHOLOGY ORDERABLES Kandice l Result Performing Organization Address [facility]/ZIP Co de Phone Number [facility] [address] [place] [phone] * Albumin, Random Urine W/Creatinine (03/01/2024 10:50 AM EDT) Creatinine, Urine 67.34 mg/dL [facility] Microalbumin Urine 10.0 mg/L [facility] Microalbum Creatinine Ratio Ur 14.8 <30 ug/mg cr [facility] Comment:Albumin/Creatinine R atio Reference Ranges: Normal: < 30 ug/mg creatinine Microalbuminuria: 30 - 300 ug/mg creatinineClinical Albuminuria: > 300 ug/mg creatinine 03/01/2024 10:5 0 AM EDT 03/01/2024 1:09 PM EDT Sendy Vincent MD LAB URINE ORDERABLES Final Re sult Performing Organization Address [facility]/ZIP Co de Phone Number [facility] [address] [place] [phone] * Hepatitis C Antibody with Reflex to HCV, RNA, Quantitative, Real-Time PCR (03/01/2024 10:44 AM EDT) Hepatitis C Antibody Nonreactive Nonreactive [facility] Comment:Antibodies to HCV no t detected; does not exclude early acuteHCV infection. Blood Venous blood specimen / Unknown 03/01/2024 10:44 AM EDT 03/01/2024 1:12 PM EDT us Sendy Vincent MD LAB BLOOD ORDERABLES Final Re sult [facility] [address] [place] [address] [phone] * HIV-1/2 Antigen and Antibodies, Fourth Generation, with Reflexes (03/01/2024 10:44 AM EDT) Pathologist [facility] HIV AB/AG Nonreactive Nonreactive [facility] Comment:HIV-1 p24 Ag and/or HIV-1/HIV-2 Ab not detected.A test result that is nonreactive does not exclude thepossibility of exposure to or infection with HIV-1 and/orHIV-2. Nonreactive results in this assay for individualswith prior exposure to HIV-1 and/or HIV-2 may be due toantigen and antibody levels that are below the limit ofdetection of this assay.The [employer] HIV Ag/Ab Combo assay result andsupplemental assay results should be interpreted inconjunction with the patient's clinical presentation,history and other laboratory results. If the results areinconsistent with clinical evidence, additional testing issuggested to confirm the result. Blood Venous blood specimen / Unknown 03/01/2024 10:44 AM EDT 03/01/2024 1:12 PM EDT us Sendy Vincent MD LAB BLOOD ORDERABLES Final Re sult [facility] [address] [place] [address] [phone] from Last 3 Months or Most Recently Relevant to Health Maintenance Insurance [facility] F[employer] Care Teams Music Manager Relationship Specialty Start Date End Date Sendy Vincent MD [address] [place] [phone] PCP - General Family Medicine 03/01/24
== END 2025-05-27 14:24 | disposition home or self-care (01) ==
LOC: HO.US 14:23
PROVIDERS: PCP Family Medicine; Visit Provider Family Medicine
DX: N83.202 Unspecified ovarian cyst, left side (principal)
CPT/HCPCS: 76830; 76856

== ENCOUNTER → 2025-05-27 14:25 | Outpatient (BNV) | payer SELFPAY | PROVIDERS: PCP Family Medicine; Visit Provider Radiology Diagnostic Radiology | DX: N83.202 Unspecified ovarian cyst, left side (principal) | CPT/HCPCS: 76830; 76856 ==

== ENCOUNTER 2025-06-23 17:53 | Outpatient (REF) | payer SELFPAY ==
--- OUTSIDE RECORDS SUMMARY | 2025-06-23 11:30 | XMS_ITS | Encounter Summary ---
Author Organization [employer] Address [address] [place] [address] [address] [place] [address] Care Team Providers Care Radiology Services Manager Name Role Phone Sendy Vincent MD Primary Care Provider [phone] Reason for Referral * Imaging (Routine) - Authorized Specialty Diagnoses / Procedures Referred By Contac t Referred To Contact Radiology Diagnoses Breast cancer screening by mammogram Procedures BI Mammogram Screening Tomosynthesis Bilateral Sendy Vincent MD [address] [place] [address] Phone: tel: fax: [address] Phone: tel: fax: Referral ID Status Reason Start Date Expiration Date V isits Requested Visits Authorized [id number] Authorized 06/23/2025 06/23/2026 1 1 Encounter Details Date Type Department Care Team (Late st Contact Info) Description 06/23/2025 11:30 AM EDT Office Visit [facility] MED & PEDS [address] [place] [address] Sendy Vincent MD [address] [place] [address] Primary hypertension (Primary Dx); Type 2 diabetes mellitus without complication, without long-term current use of insulin (HCC); Encounter for immunization; Breast cancer screening by mammogram; Type 2 diabetes mellitus with diabetic dermatitis, without long-term current use of insulin (HCC); Routine health maintenance Social History Tobacco Use Types Packs/Day Years Used Date Smoking Tobacco: Never Passive Smoke Exposure: Never Smokeless Tobacco: Never Alcohol Use Standard Drinks/Week Comments Not Currently 0 (1 standard drink = 0.6 oz pur e alcohol) Depression Answer Date Recorded Patient Health Questionnaire-9 Score 0 06/23/2025 Patient Health Questionnaire-9 Score 0 06/23/2025 Last PHQ-9: Questionnaire Data Not on file 1 Housing Stability Answer Date Recorded What is [...] Date Recorded Patient Health Questionnaire-2 Score 0 06/23/2025 Internet Access Answer Date Recorded Internet Access [...] Sign Reading Time Taken Comments Blood Pressure 138/88 06/23/2025 11:45 AM EDT Pulse 78 06/23/2025 11:45 AM EDT Temperature 37 C (98.6 F) 06/23/2025 11:45 AM EDT Respiratory Rate 20 06/23/2025 11:45 AM EDT Oxygen Saturation 98% 06/23/2025 11:45 AM EDT Inhaled Oxygen Concentration - - Weight 79.1 kg (174 lb 6.4 oz) 06/23/2025 11:45 AM EDT Height 153 cm (5' 0.24 ) 06/23/2025 11:45 AM EDT Body Mass Index 33.79 06/23/2025 11:45 AM EDT documented in this encounter Functional Status * Over the past 2 weeks, how often have you been bothered by any of the following problems? Question Answer Date of Assessment Author Patient Health Questionnaire -2 Score 0 06/23/2025 12:06 PM EDT Sendy Vincent MD * Little interest or pleasure in doing things Answer Date of Assessment Author Not at all 06/23/2025 12:06 PM EDT Sendy Vicnent MD * Feeling down, depressed, or hopeless Answer Date of Assessment Author Not at all 06/23/2025 12:06 PM EDT Sendy Vincent MD * Trouble falling or staying asleep, or sleeping too much Answer Date of Assessment Author Not at all 06/23/2025 12:06 PM EDT Sendy Vincent MD * Feeling tired or having little energy Answer Date of Assessment Author Not at all 06/23/2025 12:06 PM EDT Sendy Vincent MD * Poor appetite or overeating Answer Date of Assessment Author Not at all 06/23/2025 12:06 PM ANNETTET Sendy Vincent MD * Feeling bad about yourself - or that you are a failure or have let yourself or your family down Answer Date of Assessment Author Not at all 06/23/2025 12:06 PM EDT Sendy Vincent MD * Trouble concentrating on things, such as reading the newspaper or watching television Answer Date of Assessment Author Not at all 06/23/2025 12:06 PM ANNETTET Sendy Vincent MD * Moving or speaking so slowly that other people could have noticed? Or the opposite - being so fidgety or restless that you have been moving around a lot more than usual. Answer Date of Assessment Author Not at all 06/23/2025 12:06 PM Sendy Terrell MD * Thoughts that you would be better off or hurting yourself in some way Answer Date of Assessment Author Not at all 06/23/2025 12:06 PM EDT Sendy Vincent MD * Patient Health Questionnaire-9 Score Answer Date of Assessment Author 0 06/23/2025 12:06 PM EDT Sendy Vincent MD documented as of this encounter Progress Notes * Sendy Vincent MD - 06/23/2025 11:30 AM EDT Subjective Patient ID: Deborah Savage is a 54 y.o. female who presents for No chief complaint on file.. Deborah Savage presents for routine follow-up of diabetes and hypertension. She reports her blood sugar levels are acceptable in the morning but sometimes rise in the afternoon, with readings not exceeding 180. She states she takes her diabetes medication regularly and denies any adverse effects from the pill. Regarding her blood pressure, she indicates it is controlled, though she acknowledges it could be better controlled. She reports taking her blood pressure medication regularly withbreakfast. The patient mentions some foot concerns, she reports some dryness of her feet and mentions using foot cream. She denies having foot fungus. She mentions needing to complete a mammography, w hich she acknowledges is overdue. Medical History - Hypertension - Diabetes mellitus Medications and Supplements - Sugar medication (diabetes medication) - Takes regularly with breakfast. Blood sugar sometimes goes up to 180 in the afternoon but not badin the morning. - Blood pressure medication - Takes regularly with breakfast. No issues with the pill, doesn't make patient feel bad. Family History - Daughter: History of hypertension during , gave at age 13 Social History - Living Situation: Lives with daughter - Family Structure: Has a daughter who was born when patient was 13 years old Immunizations - COVID-19: Patient declined vaccination when offered - Hepatitis B: Patient agreed to receive vaccination when offered - Influenza: Patient reports already having received both flu vaccines Review of Systems Constitutional: Negative for appetite change, fatigue and fever. HENT: Negative for congestion, postnasal drip and rhinorrhea. Eyes: Negative for discharge and redness. Respiratory: Negative for apnea, cough, chest tightness and shortness of breath. Cardiovascular: Negative for chest pain. Gastrointestinal: Negative for abdominal pain. Endocrine: Negative for polyphagia. Genitourinary: Negative for difficulty urinating, dysuria and urgency. Musculoskeletal: Negative for arthralgias. Neurological: Negative for dizziness, light-headedness, numbness and headaches. Hematological: Negative for adenopathy. Does not bruise/bleed easily. Objective BP 138/88 Pulse 78 Temp 98.6 ??F (37 ??C) (Oral) Resp 20 Ht 5' 0.24 (1.53 m) Wt 174 lb 6.4 oz (79.1 kg) SpO2 98% BMI 33.79 kg/m?? Physical Exam Constitutional: General: She is not in acute distress. Appearance: She is normal weight. She is not ill-appearing. HENT: Head: Normocephalic and atraumatic. Nose: Nose normal. No congestion. Mouth/Throat: Mouth: Mucous membranes are moist. Comments: Has braces Eyes: Extraocular Movements: Extraocular movements intact. Pupils: Pupils are equal, round, and reactive to light. Cardiovascular: Rate and Rhythm: Normal rate and regular rhythm. Pulses: Dorsalis pedis pulses are detected w/ Doppler on the right side and detected w/ Doppler on the leftside. Posterior tibial pulses are detected w/ Doppler on the right side and detected w/ Doppler on the left side. Heart sounds: Normal heart sounds. No murmur heard. Pulmonary: Effort: Pulmonary effort is normal. No respiratory distress. Breath sounds: Normal breath sounds. Abdominal: General: Bowel sounds are normal. There is no distension. Palpations: Abdomen is soft. There is no mass. Tenderness: There is no abdominal tenderness. There is no guarding. Musculoskeletal: General: Normal range of motion. Cervical back: Normal range of motion. Right lower leg: No edema. Left lower leg: No edema. Right foot: Normal range of motion. No deformity, bunion, Charcot foot or prominent metatarsal heads. Left foot: Normal range of motion. No deformity, bunion, Charcot foot or prominent metatarsal heads. Feet: Right foot: Protective Sensation: 7 sites tested. 7 sites sensed. Skin integrity: Dry skin present. No ulcer, blister, skin breakdown, erythema, warmth or callus. Toenail Condition: Right toenails are normal. Left foot: Protective Sensation: 7 sites tested. 7 sites sensed. Skin integrity: Dry skin present. No ulcer, blister, skin breakdown, erythema, warmth or callus. Toenail Condition: Left toenails are normal. Skin: Capillary Refill: Capillary refill takes less than 2 seconds. Findings: No rash. Neurological: General: No focal deficit present. Mental Status: She is alert and oriented to person, place, and time. Psychiatric: Mood and Affect: Mood normal. Behavior: Behavior normal. Assessment/Plan Problem List Items Addressed This Visit Type 2 diabetes mellitus without complication, without long-term current use of insulin (HCC) Relevant Orders Albumin, Random Urine W/Creatinine Primary hypertension - Primary Type 2 diabetes mellitus with diabetic dermatitis, without long-term current use of insulin (HCC) Other Visit Diagnoses Encounter for immunization Relevant Medications acetaminophen (Tylenol) 325 MG capsule Other Relevant Orders HEPATITIS B VACCINE ADULT 20 yrs + Breast cancer screening by mammogram Relevant Orders BI Mammogram Screening Tomosynthesis Bilateral Routine health maintenance - Refill of Tylenol and ibuprofen sent to pharmacy Relevant Medications acetaminophen (Tylenol) 325 MG capsule Deborah Savage presents for routine follow-up of diabetes and hypertension with blood sugarsoccasionally reaching 180 mg/dL in the afternoon and blood pressure control that could be improved. Diabetes mellitus Assessment: Patient reports blood sugar control with morning values being acceptable but afternoon values sometimes reaching 180 mg/dL. Patient takes diabetes medication regularly with breakfast. No reported adverse effects from current diabetes medication. Plan: - Continue current diabetes medication - Urine test to check for protein Hypertension Assessment: Blood pressure control is improved compared to previous visits but clinician would prefer better control with target less than 130/80 mmHg. Patient takes blood pressure medication regularly. Plan: - Continue current blood pressure medication Diabetic foot screening Assessment: Annual diabetic foot examination performed. Patient reports some areas of decreased sensation in toes. Examination reveals some dryness and calluses but no fungal infection. Overall foot appearance is normal with some dryness noted. Plan: - Continue foot cream for dryness - Annual foot monitoring - Patient advised to monitor feet for any changes Preventive care Assessment: Patient is up to date with most preventive care. Declined COVID vaccination. Interestedin hepatitis B vaccination. Due for mammography screening. Plan: - Mammography scheduled - Hepatitis B vaccination offered - Follow-up in 4 months documented in this encounter Plan of Treatment Upcoming Encounters Date Type Department Care Team (Late st Contact Info) Description 07/25/2025 2:30 PM EST Office Visit [facility] OPTOMETRY [address] [place] [address] Latosha Shah, OD [address] [place] [address] Scheduled Orders Name Type Priority Associated Diagnoses Orde r Schedule BI Mammogram Screening Tomosynthesis Bilateral Imaging Routine Breast cancer screening by mammogram Expected: 06/23/2025, Expires: 08/23/2026 Albumin, Random Urine W/Creatinine Lab Routine Type 2 diabetes mellitus without complication, without long-term current use of insulin (HCC) Expected: 06/23/2025 (Approximate), Expires: 06/23/2026 documented as of this encounter Procedures Procedure Name Priority Date/Time Associated Diagnosis Comments HP LINK DIABETIC FOOT EXAM Routine 06/23/2025 documented in this encounter Results * HP Diabetic Foot Exam (06/23/2025) Sendy Vincent MD HEALTH MAINTENANCE Final Resu lt documented in this encounter Visit Diagnoses Diagnosis Primary hypertension- Primary Unspecified essential hypertension Type 2 diabetes mellitus without complication, without long-term current use of insulin (HCC) Encounter for immunization Breast cancer screening by mammogram Type 2 diabetes mellitus with diabetic dermatitis, without long-term current use of insulin (HCC) Routine health maintenance Unspecified examination documented in this encounter Additional Health Concerns Assessment Noted Time PHQ-9 Depression Total Score: 0 06/23/20 25 12:06 PM EDT documented as of this encounter Care Teams Radiology Services Manager Relationship Specialty Start Date End Date Sendy Vincent MD [address] [place] [id number] PCP - General Family Medicine 03/01/24 documented as of this encounter
[2025-06-23 18:22] LABS: Microalbum/Creatinine Ratio Ur 36.5 ug/mg cr (<30)
--- OUTSIDE RECORDS SUMMARY | 2025-06-23 19:49 | XMS_ITS | Encounter Summary ---
Author Organization [employer] Address [address] [facility] [address]t [place] [address] Care Team Providers Care Conference Coordinator Name Role Phone Sendy Vincent MD Primary Care Provider [phone] Reason for Visit * Reason Comments Med Refill Encounter Details Date Type Department Care Team ([facility] st Contact Info) Description 03/03/2025 Refill [facility] MED & PEDS [address] [place], [place] [id number] Sendy Vincent MD [address] [place] [address] Hypertension, unspecified type Social History Tobacco Use [...] Description 07/25/2025 2:30 PM EST Office Visit [facility] OPTOMETRY [address] [place] [address] Latosha Shah, OD [address] [place] [address] documented as of this encounter Visit Diagnoses Diagnosis Hypertension, unspecified type documented in this encounter Additional Health Concerns Assessment Noted Time PHQ-9 Depression Total Score: 0 04/12/20 24 1:49 PM EDT documented as of this encounter Care Teams Conference Coordinator Relationship Specialty Start Date End Date Sendy Vincent MD [address] [place] [id number] PCP - General Family Medicine 03/01/24 documented as of this encounter
--- OUTSIDE RECORDS SUMMARY | 2025-06-23 19:49 | XMS_ITS | Encounter Summary ---
Author Organization [employer] Address [address] [facility] [address] [place] [address] Care Team Providers Care Electrical Manufacturing Engineer Name Role Phone Sendy Vincent MD Primary Care Provider [phone] Encounter Details Date Type Department Care Team (Latest Contact Info) Description 06/23/2025 Travel Social History Tobacco Use Types Packs/Day [...] AM EDT documented as of this encounter Functional Status * Over the [...] PM ANNETTET Sendy Vincent MD * Feeling down, depressed, or hopeless Answer Date of Assessment Author Not at all 06/23/2025 12:06 PM ANNETTET Sendy Vincent MD * Trouble falling or staying asleep, or sleeping too much Answer Date of Assessment Author Not at all 06/23/2025 12:06 PM ANNETTET Sendy Vincent MD * Feeling tired or having little energy Answer Date of Assessment Author Not at all 06/23/2025 12:06 PM Sendy Terrell MD * Poor appetite or overeating Answer Date of Assessment Author Not at all 06/23/2025 12:06 PM ANNETTET Sendy Vincent MD * Feeling bad about yourself - or that you are a failure or have let yourself or your family down Answer Date of Assessment Author Not at all 06/23/2025 12:06 PM Sendy Terrell MD * Trouble concentrating on things, such as reading the newspaper or watching television Answer Date of Assessment Author Not at all 06/23/2025 12:06 PM Sendy Terrell MD * Moving or speaking so slowly that other people could have noticed? Or the opposite - being so fidgety or restless that you have been moving around a lot more than usual. Answer Date of Assessment Author Not at all 06/23/2025 12:06 PM EDT Sendy Vincent MD * Thoughts that you would be better off or hurting yourself in some way Answer Date of Assessment Author Not at all 06/23/2025 12:06 PM EDT Sendy Vincent MD * Patient Health Questionnaire-9 Score Answer Date of Assessment Author 0 06/23/2025 12:06 PM EDT Sendy Vincent MD documented as of this encounter Plan of Treatment Upcoming Encounters Date Type Department Care Team (Late st Contact Info) Description 07/25/2025 2:30 PM EST Office Visit [facility] OPTOMETRY [address] [place] [address] Latosha Shah, OD [address] [place] [address] documented as of this encounter Visit Diagnoses Not on filedocumented in this encounter Additional Health Concerns Assessment Noted Time PHQ-9 Depression Total Score: 0 06/23/20 25 12:06 PM EDT documented as of this encounter Care Teams Electrical Manufacturing Engineer Relationship Specialty Start Date End Date Sendy Vincent MD [address] [place] [address] PCP - General Family Medicine 03/01/24 documented as of this encounter
--- OUTSIDE RECORDS SUMMARY | 2025-06-23 19:49 | XMS_ITS | Clinical Summary ---
Author Organization [employer] Address [address] [facility] [address] [place] [address] Care Team Providers Care Communications Agent Name Role Phone Sendy Vincent MD Primary Care Provider [phone] Allergies No known active allergies Medications Blood Pressure kit 1 Units Once per day. 1 kit 024 Active Blood Glucose Monitoring Suppl ([facility]) w/Device kitIndications :Type 2 diabetes mellitus without complication, without long-term current use of insulin ([facility]) Use to test blood sugar BID 1 kit 1 024 Active loratadine (Claritin) 10 MG tablet Take 10 mg by mouth Once per day. Active EPINEPHrine (Epipen) 0.3 MG/0.3ML injection syringe INJECT INTRAMUSCULARLY FOR ALLERGIC REACTIONS, CALL 911 SEEK MEDICAL ATTENTION Active famotidine (Pepcid) 20 MG tabletIndicati ons:Mild acid reflux Take 1 tablet (20 mg) by mouth if needed in the morning and at bedtime for heartburn or indigestion. 100 tablet 1 025 2025 Active SITagliptin (Januvia) 50 MG tabletIndicati ons:Type 2 diabetes mellitus without complication, without long-term current use of insulin ([facility]) TAKE ONE TABLET BY MOUTH [...] per day. 90 tablet 1 025 Active Easy Touch Lancets 33G/Twist miscIndication s:Type 2 diabetes mellitus without complication, without long-term current use of insulin ([facility]) TEST BLOOD SUGAR TWICE DAILY 100 each 025 Active Alcohol Swabs (Alcohol Prep) 70 % padsIndication s:Type 2 diabetes mellitus without complication, without long-term current use of insulin ([facility]) USE TWICE DAILY 100 each 025 Active FREESTYLE LITE test stripIndicatio ns:Type 2 diabetes mellitus without complication, without long-term current use of insulin ([facility]) TEST BLOOD SUGAR TWICE DAILY 100 strip 025 Active metFORMIN (Glucophage) 500 MG tabletIndicati ons:Type 2 diabetes mellitus without complication, without long-term current use of insulin ([facility]) TAKE ONE TABLET TWICE DAILY WITH BREAKFAST AND SUPPER 180 tablet 1 025 Active ibuprofen 600 MG tabletIndicati ons:Routine health maintenance TAKE ONE TABLET EVERY 8 HOURS NEEDED FOR PAIN OR FEVER 100 tablet 025 Active acetaminophen (Tylenol) 325 MG capsuleIndicat ions:Routine health maintenance Take 2 capsules (650 mg) by mouth every 6 (six) hours if needed (pain or fever). 120 capsule 1 025 Active acetaminophen (Tylenol) 325 MG capsuleIndicat ions:Routine health maintenance Take 1-2 capsules (325-650 mg) by mouth every 6 (six) hours if needed (pain or fever). 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 Patient reports right- sided pelvic pain, which is discordant with the ultrasound findings. Endometrial thickness measured at 5 mm. Plan: - Refer to auto mechanic supervisor for evaluation and management of ovarian cyst [...] need to follow up with specialists in [place] due to insurance limitations Cystocele, unspecified 01/17/2025 [...] per home blood pressure readings Continues with vqseyqbhex-bvozspyqq-rdtfsibzqgdwlqnwouy 5-1 60-12.5 mg daily Encouraged lifestyle interventions [...] recommended reduction of 20-30% of maintenance calories; high scaler referral offered. Recommended to decrease soda and sugary beverage consumption. Recommended at least 20 g per meal of protein to assist with satiety. Recommended at least 150 min/week of moderate intensity exercise. Encounters Date Type Department Care Team Description 06/23/2025 11:30 AM EDT Office Visit [facility] [address] [place] [address] Sendy Vincent MD Primary hypertension (Primary Dx); Type 2 diabetes mellitus without complication, without long-term current use of insulin (HCC); Encounter for immunization; Breast cancer screening by mammogram; Type 2 diabetes mellitus with diabetic dermatitis, without long-term current use of insulin (HCC); Routine health maintenance 06/23/2025 Refill [facility] [address] [place] [address] Sendy Vincent MD 06/23/2025 Travel 06/22/2025 Telephone [facility] [address] [place] [address] Sendy Vincent MD Chart Prep 06/16/2025 Patient Outreach [facility] [address] [place] [phone] Sendy Vincent MD Pre-visit Planning (SDOH screening completed on 01/17/25 ) 05/20/2025 Telephone [facility] [address] [place] [phone] Sendy Vincent MD Results 05/04/2025 Refill [facility] [address] [place] [address] Sendy Vincent MD Routine health maintenance 04/09/2025 Refill [facility] [address] [place] [address] Sendy Vincent MD Type 2 diabetes mellitus without complication, without long-term current use of insulin (CMS/HCC) 04/02/2025 Refill [facility] [address] [place] [address] Sendy Vincent MD Type 2 diabetes mellitus without complication, without long-term current use of insulin ([facility]) 03/23/2025 11:30 AM EDT Office Visit [facility] [address] [place] [address] Sendy Vincent MD Left ovarian cyst (Primary Dx); Screening for colon cancer; Primary hypertension; Type 2 diabetes mellitus without complication, without long-term current use of insulin (CMS/HCC) 03/23/2025 Travel from Last 3 Months Immunizations Immunization Administration Dates Next Due HepB-CpG 06/23/2025 Pneumococcal Conjugate PCV 20 03/30/2024 Tdap 04/12/2024 [...] t he electric, gas, oil or water [employer] threatened to shut off services in your [...] Mass Index 33.79 06/23/2025 11:45 AM EDT Plan of Treatment Upcoming Encounters Date Type Department Care Team (Late st Contact Info) Description 07/25/2025 2:30 PM EST Office Visit [facility] OPT[facility] [address] [place] [address] Latosha Shah, OD [address] [place] [address] Health Maintenance Due Date Last Done Comments CT Colonography 1970 Colonoscopy 1970 FIT 1970 Sigmoidoscopy 1970 Disability Screening 1970 Mammogram 2010 Diabetes: Urine Protein Screening 03/01/2025 06/23/2025, 03/01/2024 Diabetes: Hemoglobin A1C 07/20/2025 01/17/2025, 0612/2023 Hepatitis B Vaccines (2 of 2 - CpG 2-dose series) 07/21/2025 06/23/2025 Alcohol/Substance Use Screening 01/17/2026 01/17/2025 SDOH Screening 01/17/2026 01/17/2025 Lipid Panel 01/18/2026 01/18/2025, 03/01/2024 Influenza Vaccine (#1) 2026 Postp oned from 05/09/2025 (Patient Refused) FOBT 04/27/2026 04/27/2025 COVID-19 Vaccine ( season) 2026 Postponed from 05/09/2025 (Patient Refused) Depression Screening 06/23/2026 06/23/2025, 06/23/20 Diabetes: Foot Exam 06/23/2026 06/23/2025, 06/23/2025, 06/23/2025, Additional history exists Tobacco Screening 06/23/2026 06/23/2025 Eye Exam 07/20/2026 07/20/2024, 07/09, 07/20/2024, Additional [...] Procedure Name Priority Date/Time Associated Diagnosis Comments ALBUMIN, RANDOM URINE W/CREATININE Routine 06/23/2025 12:20 PM EDT HP LINK DIABETIC FOOT EXAM Routine 06/23/2025 US PELVIS TRANSVAGINAL Routine 05/27/2025 2:51 PM EDT Left ovarian cyst LAB COLOGUARD COLON CANCER SCREEN Routine 04/27/2025 [...] 03/30/2024 11:55 AM EDT Cervical cancer screening HEPATITIS C AB W/REFL TO HCV RNA, QN, PCR Routine 03/01/2024 10:44 AM EDT Encounter for health-related screening HIV 1/2 ANTIGEN/ANTIBODY, FOURTH GENERATION W/RFL Routine 03/01/2024 10:44 AM EDT Encounter for health-related screening from Last 3 Months or Most Recently Relevant to Health Maintenance Results * (ABNORMAL) Albumin, Random Urine W/Creatinine (06/23/2025 12:20 PM EDT) Creatinine, Urine 57.39 mg/dL [facility] Microalbumin Urine 21.0 mg/L H [facility] Microalbum Creatinine Ratio Ur 36.5(H) <30 ug/mg cr [facility] Comment:Albumin/Creatinine R atio Reference Ranges: Normal: < 30 ug/mg creatinine Microalbuminuria: 30 - 300 ug/mg creatinineClinical Albuminuria: > 300 ug/mg creatinine 06/23/2025 12:2 0 PM EDT 06/23/2025 5:54 PM EDT us Sendy Vincent MD LAB URINE ORDERABLES Final Re sult [facility] [address] [place] [phone] * HP Diabetic Foot Exam (06/23/2025) us Sendy Vincent MD HEALTH MAINTENANCE Final Resu lt * US Pelvis Transvaginal (05/27/2025 2:51 PM EDT) Anatomical Region Laterality Modality Pelvis Ultrasound 05/27/2025 2:51 PM EDT Narrative 05/27/2025 3:27 PM EDT [address] [address] Ultrasound Report Signed Patient: Deborah Schulz MR#: [id number] : 1970 Acct:[id number] Age/Sex: 54 / F ADM Date: 05/27/25 Loc: HO.US Attending Dr: Sendy Vincent MD Ordering Physician: Sendy Vincent MD Date of Service: 05/27/25 Procedure(s): US pelvic and transvaginal Accession Number(s): [id number] cc: Sendy Vincent MD Reason for Exam: LEFT OVARIAN CYST F/U EXAMINATION: US PELVIS CLINICAL INFORMATION: Follow-up left ovarian cyst. COMPARISON: 02/23/2025. TECHNIQUE: Ultrasound of the pelvis is performed using both transabdominal and transvaginal transducers along with Doppler. Transvaginal imaging is performed due to inadequate visualization transabdominally. FINDINGS: Uterus: The uterus is anteverted and measures 9.2 x 4.2 x 5.7 cm. The cervix is normal with small nabothian cysts present. The double wall endometrial thickness is 3 mm. The uterus is smooth in contour and has somewhat heterogeneous myometrial echogenicity. No visible fibroid. Adnexa: Both ovaries are visualized. There is normal color flow to the adnexa. There is no ovarian torsion. There is no pelvic ascites or fluid collection. There are no adnexal masses. Right ovary measures 1.8 x 2.6 x 1.5 cm. Normal sonographic appearance. Left ovary measures 6.3 x 4.3 x 4.6 cm. Volume = 65.3 mL. There is a follicular cyst present measuring 5.8 x 4.0 x 4.2 cm (previously 5.8 x 3.3 x 4.2 cm). It has some simple appearing septations present without nodularity. This is a benign entity. US/US pelvic and transvaginal IMPRESSION: 1. Essentially stable minimally complicated left ovarian cyst measuring 5.8 x 4.0 x 4.2 cm. Appearance favors a benign entity. 2. Right ovary is normal. 3. Normal endometrium at 3 mm. Electronically signed by: Misael Mccurdy MD 05/27/2025 03:25 PM EDT Dictated By: Misael Mccurdy MD Signed By: <Electronically signed by Misael Mccurdy MD in OV> 05/27/25 1525 DD/ 1451 TD/TT: 05/27/25 1509 Manager Med Surg: Procedure Note Donotuseinterpreter, Image - 05/27/2025 [place] [address] Ultrasound Report Signed Patient: Elizabet Schulz#: M [id number] : 1970Acct:[id number] Age/Sex: 54 / FADM Date: 05/27/25 Loc: HO.US Attending Dr: Sendy Vincent MD Ordering Physician: Sendy Vincent MD Date of Service: 05/27/25 Procedure(s): US pelvic and transvaginal Accession Number(s): [id number] cc: Sendy Vincent MD Reason for Exam: LEFT OVARIAN CYST F/U EXAMINATION: US PELVIS CLINICAL INFORMATION: Follow-up left ovarian cyst. COMPARISON: 02/23/2025. TECHNIQUE: Ultrasound of the pelvis is performed using both transabdominal and transvaginal transducers along with Doppler. Transvaginal imaging is performed due to inadequate visualization transabdominally. FINDINGS: Uterus: The uterus is anteverted and measures 9.2 x 4.2 x 5.7 cm. The cervix is normal with small nabothian cysts present. The double wall endometrial thickness is 3 mm. The uterus is smooth in contour and has somewhat heterogeneous myometrial echogenicity. No visible fibroid. Adnexa: Both ovaries are visualized. There is normal color flow to the adnexa. There is no ovarian torsion. There is no pelvic ascites or fluid collection. There are no adnexal masses. Right ovary measures 1.8 x 2.6 x 1.5 cm. Normal sonographic appearance. Left ovary measures 6.3 x 4.3 x 4.6 cm. Volume = 65.3 mL. There is a follicular cyst present measuring 5.8 x 4.0 x 4.2 cm (previously 5.8 x 3.3 x 4.2 cm). It has some simple appearing septations present without nodularity. This is a benign entity. US/US pelvic and transvaginal IMPRESSION: 1. Essentially stable minimally complicated left ovarian cyst measuring 5.8 x 4.0 x 4.2 cm. Appearance favors a benign entity. 2. Right ovary is normal. 3. Normal endometrium at 3 mm. Electronically signed by: Misael Mccurdy MD 05/27/2025 03:25 PM EDT Dictated By: Misael Mccurdy MD Signed By: <Electronically signed by Misael Mccurdy MD in OV> 05/27/25 1525 DD/ 1451 TD/TT: 05/27/25 1509 Manager Med Surg: us Sendy Vincent MD IMG US PROCEDURES Edited Resu lt - Final * Cologuard?? colon cancer screening (04/27/2025 1:00 PM EDT) Cologuard Result Negative Negative 05/02/20 1:27 PM EDT [employer] (CLIA #:[id number]) Comment: The Cologuard (TM) test was performed [...] screened with both Cologuard and colonoscopy. (Rubén Emery. et al, N Engl J Med 2014;370(14):1286- 1297) The normal value (reference range) for this assay is negative. COLOGUARD RE-SCREENING RECOMMENDATION: Periodic colorectal cancer screening is an important part of preventive healthcare for asymptomatic individuals at average risk for colorectal cancer. Following a negative Cologuard result, the [place] Cancer Society and U.S. Multi-Society Task Force screening guidelines recommend a Cologuard re-screening interval of 3 years. References: [place] [employer] Guideline for Colorectal Cancer Screening: https://www.cancer.org/cancer/pgnnd-tyefzw-zyhghb/anrycofrn-txnmcnaas-tholvuv/ac s-rec ommendations.html.; Stanley RAMIREZ, Mac SANTOS, Castillo SalgadoK, Colorectal Cancer Screening: Recommendations for Physicians and Patients from the U.S. Multi-Society Task Force on Colorectal Cancer Screening , Am J Gastroenterology 2017; 112:4082-7519. TEST DESCRIPTION: Composite algorithmic analysis of stool [...] (Rubén Diamond al, N Engl J Med 2014;370(14):7699-8441.) Cologuard may produce a false negative or false positive result (no colorectal cancer or precancerous polyp present at colonoscopy follow up). A negative Cologuard test result does not guarantee the absence of CRC or advanced adenoma (pre-cancer). The current Cologuard screening interval is every 3 years. ([place] [employer] Society and U.S. Multi-Society Task Force). Cologuard performance data in a 10,000 patient pivotal study using colonoscopy as the reference method can be accessed at the following location: www.[employer]/results. Additional description of the Cologuard test process, warnings and precautions can be found at www.[employer]. Stool specimen (specimen) 04/27/2025 1:00 PM EDT 04/28/2025 1:39 PM EDT us Sendy Vincent MD LAB MOLECULAR DIAGNOSTICS ORD ERABLES Final Result [facility] [employer] (CLIA #:[id number]) [address] [place] [address], * (ABNORMAL) Lipid Panel, Standard (01/18/2025 1:00 PM EDT) Triglycerides 99 <150 mg/dL [facility] Comment:Desirable Triglyceri de: less than 150 mg/dLBorderline High Triglyceride 150-199 mg/dLHigh Triglyceride: 200-499 mg/dLVery High Triglyceride: greater than or equal to 5OO mg/dL Cholesterol 206(H) <200 mg/dL [facility] Comment:Desirable Cholestero l: less than 200 mg/dLBorderline High Cholesterol: 200-239 mg/dLHigh Cholesterol: greater than 239 mg/dL LDL Cholesterol Calculated 145(H) <100 mg/dL [facility] Comment:Desirable LDL: less than 100 mg/dLNear Optimal/Above Optimal LDL: 110- 129 mg/dLBorderline High LDL: 130-159 mg/dLHigh LDL: 160-189 mg/dLVery High LDL: greater than or equal to 190 mg/dL HDL Cholesterol 42 >40 mg/dL [facility] Comment:Desirable HDL: great er than 40 mg/dL Note: This HDL assay may give artificially low results in patients with liver disease. Blood Venous blood specimen / Unknown 01/18/2025 1:00 PM EDT 01/18/2025 2:00 PM EDT Sendy Vincent MD LAB BLOOD ORDERABLES Final Re sult [facility] [address] [place] [phone] * POCT HGB A1C (01/17/2025 9:48 AM EDT) Hemoglobin A1C 5.7 4.0 - 6.0 % QC Media Lot # [id number] Lot# Expiration Date 122, Blood 01/17/2025 9:48 AM EDT Sendy Vincent MD POINT OF CARE TEST ENTER/EDIT ORDERABLES Final Result * Pap Smear (03/30/2024 11:55 AM EDT) SOURCE: SEE NOTE [facility] Comment:None given Report Status: TNP [facility] Clinical Information: SEE NOTE [facility] Comment:None given LMP: SEE NOTE [facility] Comment:NONE GIVEN Prev. PAP: SEE NOTE [facility] Comment:NONE GIVEN Prev. BX: SEE NOTE [facility] Comment:NONE GIVEN Statement Of Adequacy: SEE NOTE [facility] Comment:Satisfactory for mihai luation.Endocervical/transformation zone componentpresent. General Categorization: [facility] Interpretation/Result: SEE NOTE [facility] Comment:Cytology Results: Ne gative for intraepitheliallesion or malignancy. Cytology Comment SEE NOTE [facility] Comment:This Pap test has be en evaluated with computerassisted technology. Neuropsychologist: SEE NOTE [facility] Comment:GSG, CT(ASCP)CT scre ening location: [address] [address] Review Neuropsychologist: [facility] Pathologist [facility] PAP Infection [facility] See Note SEE NOTE [facility] Comment:EXPLANATORY NOTE:The Pap is a screening test for cervical cancer. It isnot a diagnostic test and is subject to false negativeand false positive results. It is most reliable when asatisfactory sample, regularly obtained, is submittedwith relevant clinical findings and history, and whenthe Pap result is evaluated along with historic andcurrent clinical information.THIS TEST WAS PERFORMED AT:[facility] [address] [id number] MARSH MD Pap Vial Vaginal structure / Unknown 03/30/2024 11:55 AM EDT 03/30/2024 2:10 PM EDT Narrative [facility] - 04/02/2024 12:46 PM EDT SEE SCANNED RESULTS IN EMR us Sendy Vincent MD LAB PATHOLOGY ORDERABLES Kandice l Result [facility] [address] [place] [phone] * Hepatitis C Antibody with Reflex to HCV, RNA, Quantitative, Real-Time PCR (03/01/2024 10:44 AM EDT) Hepatitis C Antibody Nonreactive Nonreactive [facility] Comment:Antibodies to HCV no t detected; does not exclude early acuteHCV infection. Blood Venous blood specimen / Unknown 03/01/2024 10:44 AM EDT 03/01/2024 1:12 PM EDT us Sendy Vincent MD LAB BLOOD ORDERABLES Final Re sult Performing Organization Address [facility]/ZIP Co de Phone Number [facility] [address] [place] [phone] [phone] * HIV-1/2 Antigen and Antibodies, Fourth Generation, with Reflexes (03/01/2024 10:44 AM EDT) [facility] HIV AB/AG Nonreactive Nonreactive [facility] Comment:HIV-1 p24 Ag and/or HIV-1/HIV-2 Ab not detected.A test result that is nonreactive does not exclude thepossibility of exposure to or infection with HIV-1 and/orHIV-2. Nonreactive results in this assay for individualswith prior exposure to HIV-1 and/or HIV-2 may be due toantigen and antibody levels that are below the limit ofdetection of this assay.The [employer] HIV Ag/Ab Combo assay result andsupplemental assay results should be interpreted inconjunction with the patient's clinical presentation,history and other laboratory results. If the results areinconsistent with clinical evidence, additional testing issuggested to confirm the result. Blood Venous blood specimen / Unknown 03/01/2024 10:44 AM EDT 03/01/2024 1:12 PM EDT us Sendy Vincent MD LAB BLOOD ORDERABLES Final Re sult Performing Organization Address City/[facility]/ZIP Co de Phone Number [facility] [address] [place] [address] [phone] from Last 3 Months or Most Recently Relevant to Health Maintenance Insurance [employer] Care Teams Communications Agent Relationship Specialty Start Date End Date Sendy Vincent MD [address] [place] [phone] PCP - General Family Medicine 03/01/24
--- OUTSIDE RECORDS SUMMARY | 2025-06-23 19:49 | XMS_ITS | Encounter Summary ---
Author Organization [employer] Address [address] [facility] [address] [place] [address] Care Team Providers Care Ammunition Storage Superintendent Name Role Phone Sendy Vincent MD Primary Care Provider [phone] Reason for Visit * Reason Onset Date Comments Chart Prep 06/22/2025 Encounter Details Date Type Department Care Team ([facility] st Contact Info) Description 06/22/2025 Telephone [facility] [address] [place] [address] Sendy Vincent MD [address] [place] [address] Chart Prep Social History Tobacco Use Types Packs/Day Years [...] encounter Miscellaneous Notes * Telephone Encounter - Ann Smith MA - 06/22/2025 10:29 AM EDT Chart Prep Labs: not done Images: done Referrals: complete Vaccines due: Covid, Flu, and Hep B Screenings: mammogram, foot exam, and LMP Overdue care gaps: A1c, Glucose, PHQ-9, Disability screen, and Tobacco ] documented in this encounter Plan of Treatment Upcoming Encounters Date Type Department Care Team (Late st Contact Info) Description 07/25/2025 2:30 PM EST Office Visit [facility] OPTOMETRY [address] [place] [address] Latosha Shah, OD [address] [place] [address] documented as of this encounter Visit Diagnoses Not on filedocumented in this encounter Additional Health Concerns Assessment Noted Time PHQ-9 Depression Total Score: 0 04/12/20 24 1:49 PM EDT documented as of this encounter Care Teams Ammunition Storage Superintendent Relationship Specialty Start Date End Date Sendy Vicnent MD [address] [place] [address] PCP - General Family Medicine 03/01/24 documented as of this encounter
--- OUTSIDE RECORDS SUMMARY | 2025-06-23 19:49 | XMS_ITS | Encounter Summary ---
Author Organization [employer] Address [address] [facility] 7[address] [place] [address] Care Team Providers Care Hearing Examiner Name Role Phone Sendy Vincent MD Primary Care Provider [phone] Reason for Visit * Reason Onset Date Comments Referral 02/23/2025 Encounter Details Date Type Department Care Team ([facility] st Contact Info) Description 02/23/2025 Telephone [facility] MEDICINE [address] [place] [address] Sendy Vincent MD [address] [place] [address] Referral Social History Tobacco Use Types Packs/Day [...] informed her that due to her insurance [facility] is the only place where is accepted.Patient understood and agreed with plan and had no further questions. * Telephone Encounter - Kenny Cisneros - 02/23/2025 9:21 AM EDT TC from daughter inquiring about the referral location placed for OBGYN at [facility]. She reports the location is approximately a [address] and is requesting if there are any closer options available. Please return call [phone] documented in this encounter Plan of Treatment Upcoming Encounters Date Type Department Care Team (Late st Contact Info) Description 07/25/2025 2:30 PM EST Office Visit [facility] OPTOMETRY [address] [place] [address] Latosha Shah, OD [address] [place] [address] documented as of this encounter Visit Diagnoses Not on filedocumented in this encounter Additional Health Concerns Assessment Noted Time PHQ-9 Depression Total Score: 0 04/12/20 1:49 PM EDT documented as of this encounter Care Teams Hearing Examiner Relationship Specialty Start Date End Date Sendy Vincent MD [address] [place] [address] PCP - General Family Medicine 03/01/24 documented as of this encounter
--- OUTSIDE RECORDS SUMMARY | 2025-06-23 19:49 | XMS_ITS | Encounter Summary ---
Author Organization [employer] Address [address] [facility] 7[address] [place] [address] Care Team Providers Care Biomedical Engineering Technologist Name Role Phone Sendy Vincent MD Primary Care Provider [phone] Reason for Visit * Reason Comments Med Refill Encounter Details Date Type Department Care Team ([facility] st Contact Info) Description 07/15/[address] [facility] MED & PEDS [address] [place], [place] [phone] Sendy Vincent MD [address] [place] [address] Type 2 diabetes mellitus without complication, without long-term current use of insulin ([facility]) Social History [...] Description 07/25/2025 2:30 PM EST Office Visit [facility] OPTOMETRY [address] [place] [address] Latosha Shah OD [address] [place] [address] documented as of this encounter Visit Diagnoses Diagnosis Type 2 diabetes mellitus without complication, without long-term current use of insulin (HCC) documented in this encounter Additional Health Concerns Assessment Noted Time PHQ-9 Depression Total Score: 0 04/12/20 24 1:49 PM EDT documented as of this encounter Care Teams Biomedical Engineering Technologist Relationship Specialty Start Date End Date Sendy Vincent MD [address] [place] [id number] PCP - General Family Medicine 03/01/24 documented as of this encounter
--- OUTSIDE RECORDS SUMMARY | 2025-06-23 19:49 | XMS_ITS | Encounter Summary ---
Author Organization [employer] Address [address] [facility] 7[address] [place] [address] Care Team Providers Care Implementation Project Coordinator Name Role Phone Sendy Vincent MD Primary Care Provider [phone] Reason for Visit * Reason Onset Date Comments Medication Question 03/03/2024 Encounter Details Date Type Department Care Team ([facility] st Contact Info) Description 03/03/2024 Telephone [facility] MEDICINE [address] [place] [address] Sendy Vincent MD [address] [place] [address] Medication Question Social History Tobacco Use Types [...] t he electric, gas, oil or water [employer] threatened to shut off services in your [...] Description 07/25/2025 2:30 PM EST Office Visit [facility] OPTOMETRY [address] [place], [place] [phone] Latosha Shah, OD [address] [place] [address] documented as of this encounter Visit Diagnoses Not on filedocumented in this encounter Care Teams Implementation Project Coordinator Relationship Specialty Start Date End Date Sendy Vincent MD [address] [place] [phone] PCP - General Family Medicine 03/01/24 documented as of this encounter
--- OUTSIDE RECORDS SUMMARY | 2025-06-23 19:49 | XMS_ITS | Encounter Summary ---
Author Organization [employer] Address [address] [facility] 7[address] [place] [address] Care Team Providers Care Gift Shop Manager Name Role Phone Sendy Vincent MD Primary Care Provider [phone] Reason for Visit * Reason Comments Med Refill Encounter Details Date Type Department Care Team ([facility] st Contact Info) Description 06/23/2025 Refill [facility] CHC MED & PEDS [address] [place], [place] [phone] Sendy Vincent MD [address] [place] [address] Social History Tobacco Use Types Packs/Day Years [...] PM EDT Sendy Vincent MD * Feeling down, depressed, [...] 06/23/2025 12:06 PM Sendy Terrell MD * Feeling bad about yourself - [...] 12:06 PM EDT Sendy Vincent MD * Moving or speaking [...] Description 07/25/2025 2:30 PM EST Office Visit [facility] OPTOMETRY [address] [place] [address] Latosha Shah, OD [address] [place] [address] documented as of this encounter Visit Diagnoses Not on filedocumented in this encounter Additional Health Concerns Assessment Noted Time PHQ-9 Depression Total Score: 0 06/23/20 25 12:06 PM EDT documented as of this encounter Care Teams Gift Shop Manager Relationship Specialty Start Date End Date Sendy Vincent MD [address] [place] [address] PCP - General Family Medicine 03/01/24 documented as of this encounter
== END 2025-06-23 17:54 | disposition home or self-care (01) ==
LOC: HO.HHCLNP 17:53
PROVIDERS: Visit Provider Family Medicine
DX: E11.9 Type 2 diabetes mellitus without complications (principal)
CPT/HCPCS: 82043; 82570